=== PATIENT | male | born 1965 | race Caucasian/White ===

== ENCOUNTER 2018-08-01 22:02 | Inpatient (IN) | payer OTHER, MEDICAID ==
[~2018-08-01] VITALS: Ht 170.2 cm; Wt 104.8 kg
[~2018-08-01 22:02] MED LIST: AMIO200T PO; Acetaminophen PO; CARV3.122 PO; CLIN300C6 PO; COL250 PO; FURO-572 PO; LEVO750T2 PO; METO50TE2 PO; NYST100022 PO; PANT40EC PO; SACC250C1 PO; WARF5TAB1 PO; ZOLP5TAB1 PO
--- NOTE | 2018-08-01 22:13 | NUR ---
Patient ambulated to bed 3 with family. RN evaluating patient at bedside.
--- NOTE | 2018-08-01 22:14 | NUR ---
Report given to Florentin VOSS.
--- NOTE | 2018-08-01 22:20 | NUR ---
PT IS A 53 Y/O MALE WHO PRESENTS TO THE ED C/O CHEST PAIN AND DIFFICULTY BREATHING. PT REPORTS 8/10 ACHING LOWER CHEST PAIN. PT REPORTS SOB, LUNG SOUNDS CLEAR BL, 97% ON RA. PT DENIES COUGH, REPORTS VOMITING DENIES NAUSEA/DIARRHEA. PT AWAKE AND ALERT, RR EVEN/UNLABORED. PT REPOSITIONED FOR COMFORT, BED IN LOWEST POSITION. ER MD DR. BANDA NOTIFIED. WILL CONTINUE TO MONITOR. HX: CHF, HTN, DEFIBRILATOR
[2018-08-01] MEDS ORDERED: ASPIRIN 81 MG TAB.CHEW PO ONE (23:05)
[2018-08-01] MEDS ORDERED: NACL 0.9% 1,000 ML IV ONE (23:05)
[2018-08-01] MEDS ORDERED: PANTOPRAZOLE 40 MG INJ VIAL IVP ONE (23:05)
[2018-08-01] MEDS ORDERED: MORPHINE SULFATE 2 MG/ML SYR IVP ONE (23:15)
--- NOTE | 2018-08-01 23:16 | NUR ---
technical clerk at bedside.
[2018-08-01 23:57] LABS: BASOPHILS % (AUTO) 0.6 % (0.0-2.0); EOSINOPHILS % (AUTO) 0.2 % (0.0-4.0); HEMATOCRIT 45.5 % (36-52); LYMPHOCYTES # (AUTO) 0.7 K/uL (2.0-11.5); LYMPHOCYTES % (AUTO) 12.6 % (20.5-51.1); MEAN CORPUSCULAR HEMOGLOBIN 30 pg (27-31); MEAN CORPUSCULAR HGB CONC 33 g/dL (33-37); MONOCYTES # (AUTO) 0.3 K/uL (0.8-1.0); MONOCYTES % (AUTO) 6.4 % (1.7-9.3); NEUTROPHILS # (AUTO) 4.3 K/uL (1.8-7.7); NEUTROPHILS % (AUTO) 80.2 % (42.2-75.2); PLATELET COUNT (AUTO) 207 K/uL (140-450); RED BLOOD CELL COUNT(AUTO) 5.05 MIL/uL (4.20-6.10); RED CELL DISTRIBUTION WIDTH 15.3 % (11.6-13.7); WHITE BLOOD COUNT (AUTO) 5.3 K/uL (4.8-10.8)
--- NOTE | 2018-08-01 23:58 | NUR ---
Dr. Fenton evaluating patient at bedside.
[2018-08-02 00:12] LABS: ANION GAP 7.2 (8-16); CARBON DIOXIDE 28.7 mmol/L (21-32); CREATININE 1.4 mg/dL (0.7-1.3); POTASSIUM 4.9 mmol/L (3.5-5.1)
[2018-08-02 00:17] LABS: PROTHROMBIN TIME 20.4 secs (10.8-13.4)
[2018-08-02 00:18] LABS: ALBUMIN 3.6 g/dL (3.4-5.0); TOTAL BILIRUBIN 1.5 mg/dL (0.0-1.0)
--- NOTE | 2018-08-02 00:19 | NUR ---
PT STATES HE IS IN 07/[address] BANDA MADE AWARE
[2018-08-02] MEDS ORDERED: LIDOCAINE VISCOUS 2% 20 ML UDC PO ONE (00:25)
[2018-08-02] MEDS ORDERED: FUROSEMIDE 40 MG/4 ML VIAL IVP ONE (00:25)
[2018-08-02] MEDS ORDERED: ALUMINUM HYD/MAG/SIMETHICONE 30 ML UDC PO ONE (00:25)
[2018-08-02] MEDS ORDERED: MORPHINE SULFATE 2 MG/ML SYR IVP ONE (00:25)
[2018-08-02] MEDS ORDERED: NITROGLYCERIN 2% 1 GM PKT TP ONE (00:25)
[2018-08-02] MEDS ORDERED: DICYCLOMINE HCL LIQUID 10 MG/5 ML UDC PO ONE (00:25)
--- NOTE | 2018-08-02 00:30 | NUR ---
PATIENT RESTING AT THIS TIME. NO SIGNS OF DISTRESS.
[2018-08-02] MEDS ORDERED: ONDANSETRON 4 MG/2 ML VIAL IM/IVP PRN (01:10)
[2018-08-02] MEDS ORDERED: ACETAMINOPHEN 325 MG TAB PO PRN (01:10)
[2018-08-02] MEDS ORDERED: LORazepam 2 MG/ML VIAL IM/IVP PRN (01:10)
[2018-08-02] MEDS ORDERED: MORPHINE SULFATE 2 MG/ML SYR IVP PRN (01:10)
[2018-08-02] MEDS ORDERED: DOCUSATE SODIUM 100 MG GELCAP PO PRN (01:10)
--- NOTE | 2018-08-02 01:20 | NUR ---
Patient will be admitted to care of DR. OROZCO. Admited to TELE. Will go to room 112A. Belongings list completed. Report to STEVAN VOSS.
--- NOTE | 2018-08-02 01:25 | NUR ---
ADMITTED A 53 Y/O MALE WITH CHIEF COMPLAINT OF CHEST PAIN FROM [facility] VIA GURNEY. PATIENT AAOX4, AMBULATORY, COOPERATIVE. SKIN INTACT. MRSA NASAL SWAB DONE AND SENT TO THE LAB. PERSONAL BELONGINGS AT PATIENT BEDSIDE. DISCUSSED PLAN OF CARE AND VERBALIZED UNDERSTANDING. ROUTINE ADMISSION CARE DONE AND CARRY OUT. ORDERS. BED IN LOW LOCKED POSITION. CALL LIGHT WITHIN REACH. WILL CONTINUE TO MONITOR.
[2018-08-02] MEDS: NACL 0.9% 1,000 ML IV SCH ×2 (01:30→12:26)
[2018-08-02 01:38] LABS: CHOL/HDL RATIO 3.2 (1-4.5); PHOSPHORUS 2.3 mg/dL (2.5-4.9); THYROID STIMULATING HORMONE 1.96 uIU/mL (0.34-3.74)
[2018-08-02] MEDS ORDERED: SODIUM PHOS / POTASSIUM PHOS 1 PKT PDR PO SCH (02:30)
--- NOTE | 2018-08-02 02:45 | NUR ---
URINE COLLECTED AND SENT TO THE LAB.
--- NOTE | 2018-08-02 03:00 | NUR ---
SEEN PATIENT ASLEEP COMFORTABLE ON BED. BLANKET GIVEN PER PATIENT REQUEST. CALL LIGHT WITHIN REACH. ALL NEEDS ATTENDED. BED IN LOW LOCKED POSITION. DENIES CHEST PAIN. WILL CONTINUE TO MONITOR.
[2018-08-02 03:16] LABS: APPEARANCE,URINE CLEAR (CLEAR); BILIRUBIN,URINE NEGATIVE (NEGATIVE); BLOOD, URINE NEGATIVE (NEGATIVE); COLOR,URINE YELLOW (YELLOW); LEUKOCYTE ESTERASE ,URINE NEGATIVE (NEGATIVE); NITRITE, URINE NEGATIVE (NEGATIVE); PH,URINE 5.5 (5.0-9.0); UGLUCOSE NEGATIVE (NEGATIVE)
[2018-08-02 03:25] LABS: BARBITURATE, URINE NEG. ng/ml (NEG <=200); BENZODIAZEPINE, URINE NEG. ng/mL (NEG <=200); CANNABINOID, URINE NEG. ng/mL (NEG <=50); COCAINE, URINE NEG. ng/mL (NEG <=300); OPIATE, URINE NEG. ng/mL (NEG <=2000); PHENCYCLIDINE SCREEN,URINE NEG. ng/mL (NEG <=25)
[2018-08-02 04:00] VITALS: BP 103/64
--- NOTE | 2018-08-02 04:00 | NUR ---
V/S TAKEN AND RECORDED. CALL LIGHT WITHIN REACH. WILL CONTINUE TO MONITOR.
[2018-08-02] MEDS: HYDROcodone/APAP 5/325 MG 1 TAB TAB PO PRN (04:49)
[2018-08-02 06:34] LABS: BASOPHILS # (AUTO) 0.1 K/uL (0.00-0.22); BASOPHILS % (AUTO) 0.8 % (0.0-2.0); EOSINOPHILS % (AUTO) 0.4 % (0.0-4.0); HEMATOCRIT 44.2 % (36-52); HEMOGLOBIN 14.6 g/dL (12.0-18.0); LYMPHOCYTES % (AUTO) 13.8 % (20.5-51.1); MEAN CORPUSCULAR HEMOGLOBIN 30 pg (27-31); MEAN CORPUSCULAR HGB CONC 33 g/dL (33-37); MEAN CORPUSCULAR VOLUME 90.1 fL (80-94); MONOCYTES # (AUTO) 0.7 K/uL (0.8-1.0); MONOCYTES % (AUTO) 9.3 % (1.7-9.3); NEUTROPHILS # (AUTO) 5.5 K/uL (1.8-7.7); NEUTROPHILS % (AUTO) 75.7 % (42.2-75.2); PLATELET COUNT (AUTO) 211 K/uL (140-450); RED BLOOD CELL COUNT(AUTO) 4.91 MIL/uL (4.20-6.10); RED CELL DISTRIBUTION WIDTH 15.5 % (11.6-13.7); WHITE BLOOD COUNT (AUTO) 7.3 K/uL (4.8-10.8)
[2018-08-02 06:54] LABS: ANION GAP 12.2 (8-16); CARBON DIOXIDE 26.5 mmol/L (21-32); CREATININE 1.5 mg/dL (0.7-1.3); POTASSIUM 3.7 mmol/L (3.5-5.1)
[2018-08-02 07:10] LABS: MAGNESIUM 1.9 mg/dL (1.8-2.4)
--- NOTE | 2018-08-02 07:10 | NUR ---
GAVE REPORT TO AM SHIFT NURSE AT BEDSIDE FOR CONTINUITY OF CARE. PATIENT IN STABLE CONDITION.
[2018-08-02 07:11] LABS: PHOSPHORUS 3.2 mg/dL (2.5-4.9)
--- NOTE | 2018-08-02 07:11 | NUR ---
RECEIVED BEDSIDE REPORT FROM DYNAMOTOR REPAIRER NURSE. PATIENT IS AWAKE, ALERT AND ORIENTEDX4. NO COMPLAINTS OF CHEST PAIN AT THIS TIME. HE SAYS HE HAS ABDOMINAL PAIN BUT IT IS TOLERABLE. DYNAMOTOR REPAIRER GAVE A NORCO AND IT HELPED. SKIN IS INTACT. IV ON R AC 20G INFUSING NS AT 60. CLEAN, DRY AND INTACT. TELE MONITOR IN PLACE. L CHEST PACEMAKER IN PLACE. PATIENT AMBULATES W STEADY GAIT. BED IN LOW POSITION. CALL LIGHT WITHIN REACH. WILL CONTINUE TO MONITOR THE PATIENT
[2018-08-02 08:00] VITALS: BP 113/81
--- NOTE | 2018-08-02 08:00 | NUR ---
US CALLED. PATIENT AGREED TO HOLD BREAKFAST TO GET ABDOMINAL US DONE. WILL CONTINUE TO MONITOR.
--- NOTE | 2018-08-02 08:02 | NUR ---
PATIENT HAS BEEN SCREENED AND CATEGORIZED MODERATE RISK. PATIENT WILL BE SEEN WITHIN 3-5 DAYS OF ADMISSION. 08/05-08/[address], [facility]
[2018-08-02] MEDS ORDERED: DICYCLOMINE HCL LIQUID 10 MG/5 ML UDC PO SCH (08:30)
[2018-08-02] MEDS ORDERED: LIDOCAINE VISCOUS 2% 20 ML UDC PO SCH (08:30)
[2018-08-02] MEDS ORDERED: ALUMINUM HYD/MAG/SIMETHICONE 30 ML UDC PO SCH (08:30)
[2018-08-02] MEDS ORDERED: METOPROLOL 50 MG TAB PO SCH (09:00)
[2018-08-02] MEDS: CARVEDILOL 3.125 MG TAB PO SCH ×2 (09:09→21:07)
[2018-08-02] MEDS: AMIODARONE 200 MG TAB PO SCH (09:09)
[2018-08-02] MEDS: FUROSEMIDE 20 MG TAB PO SCH (09:10)
[2018-08-02] MEDS: LISINOPRIL 5 MG TAB PO SCH (09:10)
[2018-08-02] MEDS: ASPIRIN 81 MG TAB.CHEW PO SCH (09:10)
[2018-08-02] MEDS: METOPROLOL SUCCINATE 50 MG TABER PO SCH (09:11)
[2018-08-02] MEDS ORDERED: NACL 0.9% 500 ML IV ONE (09:15)
--- NOTE | 2018-08-02 09:15 | NUR ---
ADMINISTERED GI COCKTAIL AND ORDERED MEDS. PATIENT TOLERATED WELL. BED IN LOW POSITION. CALL LIGHT WITHIN REACH. WILL CONTINUE TO MONITOR
--- NOTE | 2018-08-02 10:30 | NUR ---
PATIENT RECEIVING BOLUS AT THIS TIME. NO COMPLAINTS AT THIS TIME. BED IN LOW POSITION, PATIENT LAYING DOWN. CALL LIGHT WITHIN REACH
--- NOTE | 2018-08-02 11:28 | NUR ---
PATIENT HAS VISITORS AT BEDSIDE. NO SIGNS OF DISTRESS ON ROOM AIR. WILL CONTINUE TO MONITOR THE PATIENT
[2018-08-02 12:00] VITALS: BP 114/70
--- NOTE | 2018-08-02 13:06 | NUR ---
PATIENT LAYING IN BED. NO SIGNS OF DISTRESS. BED IN LOW POSITION. WILL CONTINUE TO MONITOR
[2018-08-02] MEDS ORDERED: BACLOFEN 10 MG TAB PO SCH (14:30)
--- NOTE | 2018-08-02 15:17 | NUR ---
ADMINISTERED MEDS ORDERED. PATIENT TOLERATED WELL. OFFERED TO PLACE SCDS ON THE PATIENT. HE REFUSED. HE SAID HE WILL WALK AROUND INSTEAD OF USING THE SCDS. EDUCATED PATIENT ON THE USE. HE VERBALIZED UNDERSTANDING
[2018-08-02 16:00] VITALS: BP 118/82
[2018-08-02] MEDS ORDERED: WARFARIN 5 MG TAB PO SCH ×2 (17:00→19:00)
[2018-08-02] MEDS: BACLOFEN 10 MG TAB PO SCH (17:17)
--- NOTE | 2018-08-02 17:18 | NUR ---
ADMINISTERED MEDS ORDERED. PATIENT TOLERATED WELL. STATES THE MUSCLE SPASM MED REALLY HELPS. NO COMPLAINTS AT THIS TIME. WILL CONTINUE TO MONITOR THE PATIENT
--- NOTE | 2018-08-02 19:09 | NUR ---
GAVE BEDSIDE REPORT TO STERILE PROCESSING TECHNICIAN NURSE. PATIENT ENDORSED IN STABLE CONDITION.
--- NOTE | 2018-08-02 19:21 | NUR ---
RECEIVED FROM AM RN IN BED AWAKE AND LAYING DOWN. ABLE TO VERBALIZE NEEDS WELL. NO SOB. DENIES ANY PAIN AT THIS TIME. TELEMETRY MONITORING. ENCOURAGED TO CALL FOR ANY HELP HE MAY NEED . CALL LIGHT WITH IN REACH. PT. INDEPENDENT AND AMBULATING WELL PER PT.
[2018-08-02 19:40] VITALS: BP 120/84
--- NOTE | 2018-08-02 20:45 | NUR ---
RECEIVED REPORT FROM DAY SHIFT RN, FOR CONTINUITY OF CARE. PT IS A/OX4, ON ROOM AIR. PT IS ABLE TO MAKE NEEDS KNOWN, ABLE TO FOLLOW COMMANDS. PT BREATHS EQUAL AND UNLABORED. PT SKIN IS INTACT. PT AMBULATES WITH STEADY GAIT. PT HAS A 20G IV TO RIGHT AC, ASYMPTOMATIC AND INTACT. DISCUSSED PLAN OF CARE WITH PT, PT VERBALIZED UNDERSTANDING. VITAL SIGNS WITHIN NORMAL LIMITS. PT STABLE, NO SIGNS OF DISTRESS NOTED AT THIS TIME. BED IN LOWEST POSITION, BED ALARM ON. CALL LIGHT WITHIN REACH, WILL CONTINUE TO MONITOR. Addendum: 08/02/18 at 2148 by Danay Gurrola RN RECEIVED REPORT FROM BIPIN GIRALDO, NOT DAY SHIFT RN.
[2018-08-02] MEDS: SIMVASTATIN 40 MG TAB PO SCH (21:07)
[2018-08-02] MEDS: ZOLPIDEM 5 MG TAB PO PRN (21:07)
--- NOTE | 2018-08-02 21:08 | NUR ---
ADMINISTERED SCHEDULED MEDICATIONS, PT TOLERATED WELL.
[2018-08-03] VITALS: BP 105/75
--- NOTE | 2018-08-03 | NUR ---
VITAL SIGNS WITHIN NORMAL LIMITS. PT STABLE, NO SIGNS OF DISTRESS NOTED AT THIS TIME. BED IN LOWEST POSITION, BED ALARM ON. CALL LIGHT WITHIN REACH, WILL CONTINUE TO MONITOR.
--- NOTE | 2018-08-03 02:34 | NUR ---
CHECKED ON PT BECAUSE THE PT IN BED NEXT TO HIM SAID PT WOULD STOP BREATHING. SPOKE TO PT AND PT STATES HE HAS SLEEP APNEA BUT HE DOES NOT USE A CPAP OR ANY OTHER DEVICE.
[2018-08-03 04:00] VITALS: BP 117/85
[2018-08-03] MEDS: HYDROcodone/APAP 5/325 MG 1 TAB TAB PO PRN (05:32)
--- NOTE | 2018-08-03 05:32 | NUR ---
ADMINISTERED NORCO FOR FLANK PAIN ON RIGHT SIDE, 04/06. PT TOLERATED WELL.
[2018-08-03] MEDS: NACL 0.9% 1,000 ML IV SCH (05:34)
[2018-08-03] MEDS: BACLOFEN 10 MG TAB PO SCH ×3 (06:32→17:26)
--- NOTE | 2018-08-03 06:35 | NUR ---
ADMINISTERED BACLOFEN EARLY PER DR LOMAS'S ORDER. PT STILL COMPLAINING OF SIDE PAIN SO SAID OK TO GIVE BACLOFEN NOW. PT TOLERATED WELL.
[2018-08-03 06:49] LABS: BASOPHILS % (AUTO) 0.4 % (0.0-2.0); EOSINOPHILS # (AUTO) 0.1 K/uL (0-0.4); EOSINOPHILS % (AUTO) 1.6 % (0.0-4.0); HEMATOCRIT 43.7 % (36-52); HEMOGLOBIN 14.6 g/dL (12.0-18.0); LYMPHOCYTES # (AUTO) 1.8 K/uL (2.0-11.5); LYMPHOCYTES % (AUTO) 32.1 % (20.5-51.1); MEAN CORPUSCULAR HEMOGLOBIN 30 pg (27-31); MEAN CORPUSCULAR HGB CONC 33 g/dL (33-37); MEAN CORPUSCULAR VOLUME 90.1 fL (80-94); MONOCYTES # (AUTO) 0.6 K/uL (0.8-1.0); MONOCYTES % (AUTO) 11.1 % (1.7-9.3); NEUTROPHILS % (AUTO) 54.8 % (42.2-75.2); PLATELET COUNT (AUTO) 185 K/uL (140-450); RED BLOOD CELL COUNT(AUTO) 4.84 MIL/uL (4.20-6.10); RED CELL DISTRIBUTION WIDTH 14.6 % (11.6-13.7); WHITE BLOOD COUNT (AUTO) 5.5 K/uL (4.8-10.8)
[2018-08-03 06:52] LABS: ANION GAP 4.2 (8-16); CARBON DIOXIDE 27.6 mmol/L (21-32); CREATININE 1.4 mg/dL (0.7-1.3); POTASSIUM 3.8 mmol/L (3.5-5.1)
[2018-08-03 06:58] LABS: PHOSPHORUS 2.4 mg/dL (2.5-4.9)
--- NOTE | 2018-08-03 07:16 | NUR ---
RECEIVED BEDSIDE REPORT FROM REMOTE CONTROL ASSEMBLER NURSE. PATIENT IS AWAKE, ALERT AND ORIENTEDX4. NO SIGNS OF DISTRESS ON ROOM AIR. NO COMPLAINTS OF CHEST PAIN AT THIS TIME. TELE MONITOR IS IN PLACE. HE IS AMBULATORY. SKIN IS INTACT. R AC 20G INFUSING NS AT 60. CLEAN, DRY AND INTACT. BED IN LOW POSITION. CALL LIGHT WITHIN REACH. WILL CONTINUE TO MONITOR THE PATIENT
--- NOTE | 2018-08-03 07:16 | NUR ---
ENDORSED PT TO DAY SHIFT RN FOR CONTINUITY OF CARE, PT IN STABLE CONDITION.
[2018-08-03 08:00] VITALS: BP 143/80
--- NOTE | 2018-08-03 08:00 | NUR ---
PATIENT EATING BREAKFAST. NO SIGNS OF DISTRESS. BED IN LOW POSITION. WILL CONTINUE TO MONITOR
[2018-08-03 08:09] LABS: T4 (THYROXINE) 11.2 ug/dL (4.5-12.0)
--- NOTE | 2018-08-03 09:00 | NUR ---
DR LOMAS SAID TO PLACE PATIENT NPO IN CASE PATIENT GETS SURGERY. SURGEON TO SEE PATIENT TO SEE IF HE IS QUALIFIED FOR LAP YAMILETH. NPO SIGNS UP
--- NOTE | 2018-08-03 10:00 | NUR ---
PATIENT NOT NPO ANYMORE PER DR LOMAS. SIGNS REMOVED
[2018-08-03] MEDS: LISINOPRIL 5 MG TAB PO SCH (10:06)
[2018-08-03] MEDS: ASPIRIN 81 MG TAB.CHEW PO SCH (10:06)
[2018-08-03] MEDS: CARVEDILOL 3.125 MG TAB PO SCH ×2 (10:06→20:27)
[2018-08-03] MEDS: METOPROLOL SUCCINATE 50 MG TABER PO SCH (10:07)
[2018-08-03] MEDS: AMIODARONE 200 MG TAB PO SCH (10:07)
[2018-08-03] MEDS: FUROSEMIDE 20 MG TAB PO SCH (10:07)
[2018-08-03 10:09] LABS: PROTHROMBIN TIME 18.1 secs (10.8-13.4)
--- NOTE | 2018-08-03 10:09 | NUR ---
ADMINISTERED MEDS. PATIENT TOLERATED WELL. WILL CONTINUE TO MONITOR THE PATIENT
--- NOTE | 2018-08-03 11:18 | NUR ---
PATIENT SITTING IN BED WATCHING TV. NO SIGNS OF DISTRESS, BED IN LOW POSITION. CALL LIGHT WITHIN REACH
--- NOTE | 2018-08-03 11:35 | NUR ---
PATIENT IN THE SHOWERED.
[2018-08-03 12:00] VITALS: BP 126/76
--- NOTE | 2018-08-03 12:00 | NUR ---
PATIENT BACK FROM THE SHOWER IN STABLE CONDITION.
[2018-08-03] MEDS: SODIUM PHOS / POTASSIUM PHOS 1 PKT PDR PO SCH ×2 (13:20→20:28)
--- NOTE | 2018-08-03 13:28 | NUR ---
ADMINISTERED MEDS. PATIENT TOLERATED WELL. DAUGHTER AT BEDSIDE. WILL CONTINUE TO MONITOR THE PATIENT
--- NOTE | 2018-08-03 15:17 | NUR ---
IV IS LEAKING. NEW IV ON L HAND 22G INFUSING NS AT 60. CLEAN, DRY AND INTACT. OTHER IV REMOVED, TIP IS INTACT.
[2018-08-03 16:00] VITALS: BP 108/74
--- NOTE | 2018-08-03 16:15 | NUR ---
PATIENT LAYING IN BED. NO SIGNS OF DISTRESS. BED IN LOW POSITION. CALL LIGHT WITHIN REACH. WILL CONTINUE TO MONITOR THE PATIENT
[2018-08-03] MEDS ORDERED: WARFARIN 5 MG TAB PO SCH (17:00)
--- NOTE | 2018-08-03 17:30 | NUR ---
ADMINISTERED MEDS. PATIENT TOLERATED WELL. PATIENT ABOUT TO EAT DINNER. WILL CONTINUE TO MONITOR.
--- NOTE | 2018-08-03 19:00 | NUR ---
GAVE BEDSIDE REPORT TO RESERVOIR ENGINEERING CONSULTANT NURSE. PATIENT ENDORSED IN STABLE CONDITION
--- NOTE | 2018-08-03 19:05 | NUR ---
RECEIVED REPORT FROM DAY SHIFT RN, FOR CONTINUITY OF CARE. PT IS A/OX4, ON ROOM AIR. PT IS ABLE TO MAKE NEEDS KNOWN, ABLE TO FOLLOW COMMANDS. PT BREATHS EQUAL AND UNLABORED. PT SKIN IS INTACT. PT AMBULATES WITH STEADY GAIT. PT HAS A 20G IV TO LEFT HAND, ASYMPTOMATIC AND INTACT. DISCUSSED PLAN OF CARE WITH PT, PT VERBALIZED UNDERSTANDING. VITAL SIGNS WITHIN NORMAL LIMITS. PT STABLE, NO SIGNS OF DISTRESS NOTED AT THIS TIME. BED IN LOWEST POSITION, BED ALARM ON. CALL LIGHT WITHIN REACH, WILL CONTINUE TO MONITOR.
[2018-08-03 19:30] VITALS: BP 129/87
--- NOTE | 2018-08-03 20:05 | NUR ---
CUSTOMER SERVICE AND SALES CONSULTANT CALLED AND SAID SHE WOULD COME GET PT TO CT SOON.
[2018-08-03] MEDS: SIMVASTATIN 40 MG TAB PO SCH (20:27)
--- NOTE | 2018-08-03 20:30 | NUR ---
ADMINISTERED SCHEDULED MEDICATIONS, PT TOLERATED WELL.
--- NOTE | 2018-08-03 20:55 | NUR ---
PT WENT TO CT IN WHEELCHAIR AND IN STABLE CONDITION.
--- NOTE | 2018-08-03 21:10 | NUR ---
PT ARRIVED FROM CT, STABLE.
--- NOTE | 2018-08-03 23:05 | NUR ---
ASKED DR ZARAGOZA IF PT WOULD BE DISCHARGED TOMORROW BECAUSE PT WANTS TO KNOW. LET PT KNOW THAT DR WILL GIVE HIM AN UPDATE IN THE MORNING BECAUSE IT IS TOO SOON TO TELL OF NOW.
[2018-08-04] VITALS: BP 113/70
--- NOTE | 2018-08-04 02:43 | NUR ---
PT STABLE, NO SIGNS OF DISTRESS NOTED AT THIS TIME. BED IN LOWEST POSITION, BED ALARM ON. CALL LIGHT WITHIN REACH, WILL CONTINUE TO MONITOR.
[2018-08-04] MEDS: NACL 0.9% 1,000 ML IV SCH (03:51)
[2018-08-04 04:00] VITALS: BP 125/76
--- NOTE | 2018-08-04 06:18 | NUR ---
VITAL SIGNS WITHIN NORMAL LIMITS. PT STABLE, NO SIGNS OF DISTRESS NOTED AT THIS TIME. BED IN LOWEST POSITION, BED ALARM ON. CALL LIGHT WITHIN REACH, WILL CONTINUE TO MONITOR. Addendum: 08/04/18 at 0618 by Danay Gurrola RN DISREGARD.
--- NOTE | 2018-08-04 06:47 | NUR ---
SPOKE TO ANABELLE ABOUT STAT HIDA SCAN, SHE SAYS SHE WILL CALL SOMEONE TO COME DO IT AND SHE WILL UPDATE ME KARIN.
--- NOTE | 2018-08-04 07:30 | NUR ---
ENDORSED PT TO DAY SHIFT RN FOR CONTINUITY OF CARE. PT IN STABLE CONDITION.
--- NOTE | 2018-08-04 07:30 | NUR ---
Received report from night RN. Pt asleep easily arousable, a/o able to communicate needs. Pt denies pain, N/V at this time. Pt aware of planned test and is NPO and agreeable. No s/s of acute distress noted at this time, call light and safety measures in place, will continue to monitor.
[2018-08-04 07:40] LABS: BASOPHILS % (AUTO) 0.3 % (0.0-2.0); EOSINOPHILS # (AUTO) 0.1 K/uL (0-0.4); EOSINOPHILS % (AUTO) 1.6 % (0.0-4.0); HEMOGLOBIN 14.9 g/dL (12.0-18.0); LYMPHOCYTES # (AUTO) 1.6 K/uL (2.0-11.5); LYMPHOCYTES % (AUTO) 27.2 % (20.5-51.1); MEAN CORPUSCULAR HEMOGLOBIN 30 pg (27-31); MEAN CORPUSCULAR HGB CONC 33 g/dL (33-37); MEAN CORPUSCULAR VOLUME 89.8 fL (80-94); MONOCYTES # (AUTO) 0.6 K/uL (0.8-1.0); MONOCYTES % (AUTO) 11.1 % (1.7-9.3); NEUTROPHILS # (AUTO) 3.5 K/uL (1.8-7.7); NEUTROPHILS % (AUTO) 59.8 % (42.2-75.2); PLATELET COUNT (AUTO) 193 K/uL (140-450); RED BLOOD CELL COUNT(AUTO) 5.01 MIL/uL (4.20-6.10); RED CELL DISTRIBUTION WIDTH 14.8 % (11.6-13.7); WHITE BLOOD COUNT (AUTO) 5.8 K/uL (4.8-10.8)
--- NOTE | 2018-08-04 07:45 | NUR ---
Spoke with Kia at [facility] radiology, per kia MANDEL scan to be completed at 1pm unless outsourced.
[2018-08-04 07:46] LABS: ANION GAP 10.9 (8-16); CARBON DIOXIDE 26.1 mmol/L (21-32); CREATININE 1.3 mg/dL (0.7-1.3)
--- NOTE | 2018-08-04 07:50 | NUR ---
Dr Gunter rounding st bedside. Pt a/o cooperative, notified Dr Whitfield that per radiology HIDA unable to be completed until 1pm today unless he would like to outsource for earlier exam, per Dr beltran 1pm time is ok, charge nurse aware. Pt aware and agreeable. No s/s of acute distress noted at this time, call light and safety measures in place, will continue to monitor.
[2018-08-04 07:56] LABS: PROTHROMBIN TIME 24.4 secs (10.8-13.4)
[2018-08-04 08:00] VITALS: BP 121/84
--- NOTE | 2018-08-04 08:35 | NUR ---
Spoke with Lois in radiology, per Kia Abreu to perform HIDA exam at 1 pm today. Exam will be performed by PMI,; awaiting call back to verify time.
[2018-08-04] MEDS: ASPIRIN 81 MG TAB.CHEW PO SCH ×2 (08:50→11:47)
[2018-08-04] MEDS: CARVEDILOL 3.125 MG TAB PO SCH ×3 (08:51→20:55)
[2018-08-04] MEDS: LISINOPRIL 5 MG TAB PO SCH ×2 (08:51→11:49)
[2018-08-04] MEDS: FUROSEMIDE 20 MG TAB PO SCH ×2 (08:51→11:48)
[2018-08-04] MEDS: METOPROLOL SUCCINATE 50 MG TABER PO SCH ×2 (08:51→11:49)
[2018-08-04] MEDS: BACLOFEN 10 MG TAB PO SCH ×3 (08:51→16:33)
[2018-08-04] MEDS: AMIODARONE 200 MG TAB PO SCH ×2 (08:52→11:48)
--- NOTE | 2018-08-04 09:50 | NUR ---
Pt a/o able to communicate needs. Pt denies pain, N/V at this time, maintained NPO. No s/s of acute distress noted at this time, call light and safety measures in place, will continue to monitor.
[2018-08-04] MEDS: DEXT 5% /NACL 0.9% 1,000 ML IV SCH (11:41)
[2018-08-04 12:00] VITALS: BP 130/92
--- NOTE | 2018-08-04 12:28 | NUR ---
EKG completed at bedside. HIDA scan in process at bedside, Pt tolerating well. Pt denies pain, no s/s of acute distress noted at this time, call light and safety measures in place, will continue to monitor.
--- NOTE | 2018-08-04 15:30 | NUR ---
Pt asleep easily arousable a/o able to communicate needs. Denies n/v, denies pain, no s/s of acute distress noted at this time. Waiting on results of HIDA scan. Call light and safety precautions in place, will continue to monitor.
[2018-08-04 16:00] VITALS: BP 118/80
[2018-08-04] MEDS ORDERED: WARFARIN 1 MG TAB PO SCH (17:00)
--- NOTE | 2018-08-04 17:15 | NUR ---
Reymundo Smith in nuclear med regarding HIDA scan results; will f/u with PMI and notify nursing when results available. Dr Leiva notified and request PM physician be notified when results available for follow up orders. The plan is for the patient to have dinner and then resume NPO pending results.
--- NOTE | 2018-08-04 19:05 | NUR ---
Pt awake a/o able to communicate needs. Denies n/v, denies pain, no s/s of acute distress noted at this time, call light and safety measures in place. Report endorsed to abad nurse Danay including follow up for results of HIDA scan.
--- NOTE | 2018-08-04 19:10 | NUR ---
RECEIVED REPORT FROM DAY SHIFT RN, FOR CONTINUITY OF CARE. PT IS A/OX4, ON ROOM AIR. PT IS ABLE TO MAKE NEEDS KNOWN, ABLE TO FOLLOW COMMANDS. PT BREATHS EQUAL AND UNLABORED. PT SKIN IS INTACT. PT AMBULATES WITH STEADY GAIT. PT HAS A 20G IV TO LEFT HAND, ASYMPTOMATIC AND INTACT. DISCUSSED PLAN OF CARE WITH PT, PT VERBALIZED UNDERSTANDING. HIDA SCAN WAS SENT AND NOW AWAITING RESULTS, INSTRUCTIONS TO INFORM BICYCLE TAXI DRIVER RESIDENT UPON RECEIVED RESULTS. VITAL SIGNS WITHIN NORMAL LIMITS. PT STABLE, NO SIGNS OF DISTRESS NOTED AT THIS TIME. BED IN LOWEST POSITION, BED ALARM ON. CALL LIGHT WITHIN REACH, WILL CONTINUE TO MONITOR.
[2018-08-04 20:00] VITALS: BP_SYST 110; BP_SYST 128; BP_DIAS 62; BP_DIAS 76
[2018-08-04] MEDS: SIMVASTATIN 40 MG TAB PO SCH (20:54)
[2018-08-04] MEDS: ZOLPIDEM 5 MG TAB PO PRN (20:54)
--- NOTE | 2018-08-04 20:56 | NUR ---
ADMINISTERED SCHEDULED MEDICATIONS AND AMBIEN FOR TROUBLE SLEEPING, PT TOLERATED WELL . PT NOW GOING TO SHOWER.
--- NOTE | 2018-08-04 22:15 | NUR ---
CALLED RADIOLOGY TO FIND OUT ABOUT HIDA SCAN REPORT BECAUSE DAY SHIFT HAD TOLD ME THEY HAD PUT IT THROUGH STAT IN THE DAY AND NO RESULTS ARE SHOWN YET.
--- NOTE | 2018-08-04 22:35 | NUR ---
GOT A CALL BACK ABOUT HIDA SCAN RESULTS. APPARENTLY NO IMAGES WERE SENT EARLIER AND THEY WILL NOW SEND AGAIN WITH IMAGES STAT.
--- NOTE | 2018-08-04 22:36 | NUR ---
RECEIVED REPORT FROM DAY SHIFT RN, FOR CONTINUITY OF CARE. PT IS A/OX4, ON ROOM AIR. PT IS ABLE TO MAKE NEEDS KNOWN, ABLE TO FOLLOW COMMANDS. PT BREATHS EQUAL AND UNLABORED. PT SKIN IS INTACT. PT AMBULATES WITH STEADY GAIT. PT HAS A 20G IV TO LEFT HAND, ASYMPTOMATIC AND INTACT. DISCUSSED PLAN OF CARE WITH PT, PT VERBALIZED UNDERSTANDING. VITAL SIGNS WITHIN NORMAL LIMITS. PT STABLE, NO SIGNS OF DISTRESS NOTED AT THIS TIME. BED IN LOWEST POSITION, BED ALARM ON. CALL LIGHT WITHIN REACH, WILL CONTINUE TO MONITOR. Addendum: 08/04/18 at 2236 by Danay Gurrola RN DISREGARD, MADE MISTAKE.
--- NOTE | 2018-08-04 23:04 | NUR ---
RADIOLOGY CALLED AND SAID FAX OF HIDA SCAN RESULTS ARE HERE. WENT AND GOT RESULTS TO GIVE TO DR ABDI.
[2018-08-05] VITALS: BP 100/57
--- NOTE | 2018-08-05 02:43 | NUR ---
CHECKED ON PT, PT IS STABLE, NO SIGNS OF DISTRESS NOTED AT THIS TIME. BED IN LOWEST POSITION, BED ALARM ON. CALL LIGHT WITHIN REACH, WILL CONTINUE TO MONITOR.
[2018-08-05 04:00] VITALS: BP 114/77
[2018-08-05 05:54] LABS: BASOPHILS % (AUTO) 0.3 % (0.0-2.0); EOSINOPHILS # (AUTO) 0.1 K/uL (0-0.4); HEMATOCRIT 46.6 % (36-52); HEMOGLOBIN 15.6 g/dL (12.0-18.0); LYMPHOCYTES # (AUTO) 1.5 K/uL (2.0-11.5); LYMPHOCYTES % (AUTO) 29.4 % (20.5-51.1); MEAN CORPUSCULAR HEMOGLOBIN 30 pg (27-31); MEAN CORPUSCULAR HGB CONC 34 g/dL (33-37); MEAN CORPUSCULAR VOLUME 89.4 fL (80-94); MONOCYTES # (AUTO) 0.7 K/uL (0.8-1.0); MONOCYTES % (AUTO) 13.1 % (1.7-9.3); NEUTROPHILS # (AUTO) 2.9 K/uL (1.8-7.7); NEUTROPHILS % (AUTO) 55.2 % (42.2-75.2); PLATELET COUNT (AUTO) 201 K/uL (140-450); RED BLOOD CELL COUNT(AUTO) 5.22 MIL/uL (4.20-6.10); RED CELL DISTRIBUTION WIDTH 14.9 % (11.6-13.7); WHITE BLOOD COUNT (AUTO) 5.2 K/uL (4.8-10.8)
[2018-08-05] MEDS: DEXT 5% /NACL 0.9% 1,000 ML IV SCH (06:00)
[2018-08-05 06:16] LABS: CREATININE 1.4 mg/dL (0.7-1.3)
--- NOTE | 2018-08-05 06:20 | NUR ---
PT STABLE, NO SIGNS OF DISTRESS NOTED AT THIS TIME. BED IN LOWEST POSITION, BED ALARM ON. CALL LIGHT WITHIN REACH, WILL CONTINUE TO MONITOR.
[2018-08-05 06:22] LABS: ANION GAP 4.1 (8-16); CARBON DIOXIDE 27.9 mmol/L (21-32)
[2018-08-05 07:06] LABS: PROTHROMBIN TIME 25.7 secs (10.8-13.4)
--- NOTE | 2018-08-05 07:41 | NUR ---
ENDORSED PT TO DAY SHIFT RN FOR CONTINUITY OF CARE. PT IN STABLE CONDITION.
--- NOTE | 2018-08-05 07:46 | NUR ---
RECEIVED PT FROM BOAT MECHANIC NURSEBEN, PT IS AWAKE AND LYING ON THE BED WITH AN IV LINE ON THE LEFT HAND G. 22 WITH D5NS AT 60ML/HR RUNNING AND INTACT. PT HAS A RETURN TO FACTORY CLERK IN PLACE, SIDE RAILS ARE UP AND CALL LIGHT WITHIN REACH. PT DENIES PAIN AT THIS TIME AND PLAN OF CARE WAS DISCUSSED BY DR. OROZCO WITH THE RESIDENTS ON THE BEDSIDE AND PT VERBALIZED UNDERSTANDING. NO SIGN OF DISTRESS NOTED AND WILL CONTINUE TO MONITOR PT.
--- NOTE | 2018-08-05 07:50 | NUR ---
DR. OROZCO AND THE RESIDENT DOCTORS CAME TO THE PT'S ROOM AND SPOKE TO PT AND INFORMED THE PT THAT HE WILL BE TRANSFERRED TO A HIGHER LEVEL OF CARE AND PT VERBALIZED UNDERSTANDING. WILL FOLLOW THROUGH AND MONITOR PT.
[2018-08-05 08:00] VITALS: BP 128/86
[2018-08-05] MEDS: FUROSEMIDE 20 MG TAB PO SCH (08:50)
[2018-08-05] MEDS: BACLOFEN 10 MG TAB PO SCH ×2 (08:50→12:56)
[2018-08-05] MEDS: ASPIRIN 81 MG TAB.CHEW PO SCH (08:54)
[2018-08-05] MEDS: AMIODARONE 200 MG TAB PO SCH (08:56)
[2018-08-05] MEDS: CARVEDILOL 3.125 MG TAB PO SCH (08:56)
[2018-08-05] MEDS: LISINOPRIL 5 MG TAB PO SCH (08:56)
[2018-08-05] MEDS: METOPROLOL SUCCINATE 50 MG TABER PO SCH (08:57)
--- NOTE | 2018-08-05 09:00 | NUR ---
PT IS AWAKE AND LYING ON THE BED, PT DENIES PAIN AT THIS TIME, VITAL SIGNS TAKEN AND IS STABLE AND WITHIN NORMAL LIMITS. PT TOLERATED THE MEDICATIONS AND WILL CONTINUE TO MONITOR PT.
--- NOTE | 2018-08-05 10:21 | NUR ---
CM NOTE RECEIVED ORDER TO TRANSFER FOR HIGHER LEVEL OF CARE. SPOKE WITH [facility] KIRIT PH# [phone] AND SHE REQUESTED FOR THE FACESHEET, ORDER FOR TRANSFER TO HIGHER LEVEL OF CARE, AND H&P TO BE FAXED TO THEM AT [phone]. FAXED FACESHEET, ORDER TRANSFER TO HIGHER LEVEL OF CARE, AND H[place] TO [facility] [phone] [facility] PH# [phone].
[2018-08-05 12:00] VITALS: BP 122/85
--- NOTE | 2018-08-05 12:24 | NUR ---
CM NOTE PER [facility] BUSINESS DEVELOPMENT SALES EXECUTIVE KIRIT PH# [phone], SHE WILL FOLLOW UP WITH THEIR DOCTOR IF PATIENT CAN BE ACCEPTED OR NOT. Addendum: 08/05/18 at 1406 by Leigha Faulkner CM I ALSO GAVE KIRIT THE NUMBER TO THE NURSING STATION WHERE PATIENT IS IN CASE THEIR DOCTOR ACCEPTS THE PATIENT.
[2018-08-05] MEDS ORDERED: PIPER/TAZO 3.375GM/D5W PREMIX 50 ML IV SCH (13:40)
--- NOTE | 2018-08-05 13:45 | NUR ---
CALLED LAB AND SPOKE TO MANINDER AND INFORMED HIM OF THE BLOOD CULTURE ORDER THE PT.
--- NOTE | 2018-08-05 13:52 | NUR ---
CM NOTE PER DR. Adri LOMAS, ACCEPTING IN [facility] IS DR. Isaura KAYE. SPOKE WITH VERONICA OF [facility] ADMITTING PH# [phone] AND SHE REQUESTED FOR FACESHEET, ORDER TO TRANSFER FOR HIGHER LEVEL OF CARE, H&P, CONSULTATION REPORT TO [phone]. FACESHEET, ORDER TO TRANSFER FOR HIGHER LEVEL OF CARE, H&P, CARDIOLOGY CONSULT FAXED TO [facility] [phone], ADMITTING DEPT PH# [phone]. Addendum: 08/05/18 at 1403 by Leigha Faulkner I ALSO GAVE VERONICA OF [facility] [place] [facility] THE NUMBER TO THE NURSING STATION WHERE PATIENT IS IN CASE A BED BECOMES AVAILABLE AT A LATER TIME. CHARGE NURSE GIOVANNA ROSSI.
--- NOTE | 2018-08-05 14:17 | NUR ---
LAB IS DRAWING BLOOD NOW FROM [facility] PT FOR A BLOOD CULTURE ORDER FROM DR. LOMAS
[2018-08-05] MEDS ORDERED: LACT10CA PO (14:26)
[2018-08-05] MEDS ORDERED: SIMV40TA5 PO (14:26)
[2018-08-05] MEDS ORDERED: PANT40EC28 PO (14:26)
[2018-08-05] MEDS ORDERED: ZOS2.25PM IV (14:26)
--- NOTE | 2018-08-05 14:27 | NUR ---
CM NOTE RECEIVED CALL FROM [facility] RADIAL DRILL OPERATOR KIRIT PH# [phone] WHO STATED THAT THEIR HOSPITALIST DR. SANTIZO DENIED ACCEPTANCE OF PATIENT IN THEIR HOSPITAL BECAUSE THE HOSPITALIST THINKS THAT [facility] IS CAPABLE OF DOING THE SURGERY ON THE PATIENT. KIRIT ALSO STATED THAT THEIR HOSPITALIST HAS SPOKEN WITH AND LET DR. LOMAS KNOW. Addendum: 08/05/18 at 1433 by Leigha Faulkner CM CHARGE NURSE GIOVANNA ROSSI.
[2018-08-05] MEDS ORDERED: PANTOPRAZOLE 40 MG TABEC PO SCH (14:30)
[2018-08-05] MEDS ORDERED: LACTOBACILLUS RHAMNOSUS GG 1 EACH CAP PO SCH (14:30)
--- NOTE | 2018-08-05 15:13 | NUR ---
CM NOTE PER VERONICA OF [facility], NO BED AT THIS TIME. DR. LOMAS AWARE. FAXED INQUIRY TO [facility] [phone], PH# [phone]. I GAVE ROXY OF [facility] THE NUMBER TO THE NURSING STATION WHERE PATIENT IS. CHARGE NURSE GIOVANNA AWARE.
[2018-08-05 16:00] VITALS: BP 117/87
--- NOTE | 2018-08-05 17:10 | NUR ---
ADRIAN FROM [facility] ADMITTING CALLED AND INFORMED THAT THE PT HAS A BED AND WILL BE PUT IN ROOM 442 BUT NOT UNTIL 1900 TODAY. ADMITTING MD WILL BE JOSE MAYBERRY. INFORMED CHARGE NURSE, GIOVANNA TO ARRANGE TRANSPORT. WILL FOLLOW THROUGH.
[2018-08-05 18:23] LABS: PROTHROMBIN TIME 24.7 secs (10.8-13.4)
--- NOTE | 2018-08-05 19:45 | NUR ---
RECEIVED REPORT FROM DAY SHIFT NURSE, CORY, AT PT BEDSIDE. PT IN STABLE CONDITION. PT IS A/O X4. IV SITE TO L WRIST WITH IVF RUNNING PER MD ORDERS. IV IS PATENT AND INTACT. SKIN IS INTACT. BED IS LOCKED, LOW POSITION WITH SIDE RAILS UP X2. CALL LIGHT IS WITHIN REACH. BOARD UPDATED. WILL CONTINUE TO MONITOR PT.
--- NOTE | 2018-08-05 19:50 | NUR ---
CALLED [facility] AND SPOKE AND GAVE REPORT TO BIPIN MILES ABOUT THE PT. INFORMED BIPIN MILES THAT PT WILL BE PLACE IN BED 442 AND ADMITTING MD WILL BE JOSE MAYBERRY. 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
[2018-08-05 20:00] VITALS: BP 121/85
--- NOTE | 2018-08-05 20:14 | NUR ---
ENDORSED PT TO REVOLVING INVENTORY CLERK MANASA, FOR TRANSFER TO [facility]. DISCHARGE PAPERWORK DONE AND PT SIGNED BY THE PT. ENDORSED TO RN MANASA THAT PT WILL BE MEDICAL TECHNICIAN BY [facility]. DISCHARGE TEACHING AND INSTRUCTIONS GIVEN TO PT WITH REVOLVING INVENTORY CLERK NURSE, MANASA ON THE BEDSIDE. PT IS STABLE AT THIS TIME.
--- NOTE | 2018-08-05 20:30 | NUR ---
[facility] TOOK PT OFF UNIT. WRIST BAND REMOVED. PT SCHEDULED TO BE TAKEN TO [facility]. ALL PT BELONGINGS AND PAPERWORK WITH PT. PT IN STABLE CONDITION.
[2018-08-06] MEDS ORDERED: LACTOBACILLUS RHAMNOSUS GG 1 EACH CAP PO SCH (09:00)
[2018-08-06] MEDS ORDERED: PANTOPRAZOLE 40 MG TABEC PO SCH (09:00)
== END 2018-08-05 20:30 | disposition short-term general hospital (02) | DRG 444 ==
LOC: MED 22:02 → MTU 08-02 01:09
PROVIDERS: ADMIT General Practice; ATTEND General Practice
DX: K80.00 Calculus of gallbladder with acute cholecystitis without obstruction (principal); N17.0 Acute kidney failure with tubular necrosis; I50.43 Acute on chronic combined systolic (congestive) and diastolic (congestive) heart failure; I42.9 Cardiomyopathy, unspecified; K21.9 Gastro-esophageal reflux disease without esophagitis; E87.8 Other disorders of electrolyte and fluid balance, not elsewhere classified; E78.5 Hyperlipidemia, unspecified; E80.6 Other disorders of bilirubin metabolism; E83.39 Other disorders of phosphorus metabolism; E66.9 Obesity, unspecified; F10.10 Alcohol abuse, uncomplicated; F15.10 Other stimulant abuse, uncomplicated; J44.9 Chronic obstructive pulmonary disease, unspecified; E78.00 Pure hypercholesterolemia, unspecified; T50.905A Adverse effect of unspecified drugs, medicaments and biological substances, initial encounter; I48.2 Chronic atrial fibrillation; I11.0 Hypertensive heart disease with heart failure; Z79.01 Long term (current) use of anticoagulants; Z79.82 Long term (current) use of aspirin; Z95.810 Presence of automatic (implantable) cardiac defibrillator; Z87.891 Personal history of nicotine dependence; Z68.36 Body mass index [BMI] 36.0-36.9, adult; Y92.89 Other specified places as the place of occurrence of the external cause; Y90.9 Presence of alcohol in blood, level not specified
CPT/HCPCS: 36415; 71045; 76705; 78445; 80048; 80053; 80305; 81003; 82150; 83036; 83690; 83735; 83880; 84100; 84134; 84436; 84443; 84484; 85025; 85610; 85730; 87040; 87081; 87086; 93005; 96361; 96374; 96375; 99285; C9113; J1940; J2270; J2543; J7030; J7042; Q0092

== ENCOUNTER 2019-01-27 17:06 | Emergency (ER) | payer OTHER, MEDICAID ==
[~2019-01-27] VITALS: Ht 170.2 cm; Wt 100.7 kg
[~2019-01-27 17:06] MED LIST changes: -Acetaminophen PO; -CARV3.122 PO; -CLIN300C6 PO; -COL250 PO; +LACT10CA PO; -LEVO750T2 PO; -NYST100022 PO; -PANT40EC PO; +PANT40EC28 PO; -SACC250C1 PO; +SIMV40TA5 PO; -ZOLP5TAB1 PO; +ZOS2.25PM IV
[2019-01-27 17:10] VITALS: BP 116/84
--- NOTE | 2019-01-27 17:10 | NUR ---
PT AMBULATED TO BED 7 AT THIS TIME
--- NOTE | 2019-01-27 17:19 | NUR ---
PT STATES HE'S BEEN FEELING INCREASINGLY WEAK X 4 DAYS. PT A/OX4, ABLE TO AMBULATE WITH STEADY GAIT AND HAS EQUAL MUSCLE LENS DOTTER BILAT. DENIES CP/SOB/FEVERS/NVD. 0/10 PAIN. VENTRICULAR PACED RHYTHM ON MONITOR SWITCHING TO AFIB. ADMITS TO HAVING ICD. DENIES SEEING PCP REGULARLY STATING HE ONLY FOLLOWS UP WITH HIS WEB CONTENT COORDINATOR. +2 EDEMA BILAT LOWER EXTREMITIES, BRISK CAP REFILL. HX--AFIB, HTN, CHF MEDS--WARFARIN, METOPROLOL, AMIODARONE, LISINOPRIL
--- NOTE | 2019-01-27 17:25 | NUR ---
DR. VELOZ AT [facility].
--- NOTE | 2019-01-27 17:35 | NUR ---
XRAY AT BEDSIDE
[2019-01-27 17:53] LABS: BASOPHILS % (AUTO) 0.7 % (0.0-2.0); EOSINOPHILS # (AUTO) 0.1 K/uL (0-0.4); EOSINOPHILS % (AUTO) 1.1 % (0.0-4.0); HEMATOCRIT 48.8 % (36-52); HEMOGLOBIN 16.3 g/dL (12.0-18.0); LYMPHOCYTES # (AUTO) 1.4 K/uL (2.0-11.5); LYMPHOCYTES % (AUTO) 25.1 % (20.5-51.1); MEAN CORPUSCULAR HEMOGLOBIN 30 pg (27-31); MEAN CORPUSCULAR HGB CONC 33 g/dL (33-37); MEAN CORPUSCULAR VOLUME 88.3 fL (80-94); MONOCYTES # (AUTO) 0.6 K/uL (0.8-1.0); NEUTROPHILS # (AUTO) 3.4 K/uL (1.8-7.7); NEUTROPHILS % (AUTO) 62.1 % (42.2-75.2); PLATELET COUNT (AUTO) 339 K/uL (140-450); RED BLOOD CELL COUNT(AUTO) 5.53 MIL/uL (4.20-6.10); RED CELL DISTRIBUTION WIDTH 15.8 % (11.6-13.7); WHITE BLOOD COUNT (AUTO) 5.4 K/uL (4.8-10.8)
[2019-01-27 17:58] LABS: ANION GAP 16.6 (8-16); CARBON DIOXIDE 22.8 mmol/L (21-32); CREATININE 2.1 mg/dL (0.7-1.3); POTASSIUM 4.4 mmol/L (3.5-5.1)
[2019-01-27 18:04] LABS: ALBUMIN 3.1 g/dL (3.4-5.0)
[2019-01-27] MEDS ORDERED: NACL 0.9% 1,000 ML IV ONE (19:00)
--- NOTE | 2019-01-27 20:00 | NUR ---
LAB CALLED, WAITING FOR AIDEE TO TRACK LAYING EQUIPMENT OPERATOR BLOOD AT THIS TIME TO BRING TO [place] FOR SEND OUT. DR. BANDA MADE AWARE.
--- NOTE | 2019-01-27 21:17 | NUR ---
REPORT TO SMILEY VOSS TRANSFER OF CARE AT THIS TIME
--- NOTE | 2019-01-27 22:10 | NUR ---
PT HOB ELEVATED, PT RESTING COMFORTABLY; COMFORT MEASURES PROVIDED. PT STATES 0/10 AT THIS TIME. PT ACTING APPROPRIATLY. WILL CONTINUE TO MONITOR.
--- NOTE | 2019-01-27 23:05 | NUR ---
Dr. Fenton evaluating patient at bedside.
[2019-01-27 23:15] VITALS: BP 139/56
--- NOTE | 2019-01-27 23:15 | NUR ---
Patient discharged with v/s stable. Patient states he is ready to go home; 0/10 pain at this time; patient acting appropriatly. IV d/c tip intact; pressure and bandage applied; sight benign. Written and verbal after care instructions given and explained. Patient verbalized understanding. Ambulatory with steady gait. All questions addressed prior to discharge. Advised to follow up with PMD.
== END 2019-01-27 23:15 | disposition home or self-care (01) ==
LOC: MED 17:06
DX: R53.1 Weakness (principal); I48.91 Unspecified atrial fibrillation; N28.9 Disorder of kidney and ureter, unspecified; I11.0 Hypertensive heart disease with heart failure; I50.9 Heart failure, unspecified; J44.9 Chronic obstructive pulmonary disease, unspecified; Z79.01 Long term (current) use of anticoagulants; Z90.49 Acquired absence of other specified parts of digestive tract; Z95.0 Presence of cardiac pacemaker; Z79.899 Other long term (current) drug therapy
CPT/HCPCS: 36415; 71045; 80053; 83880; 84484; 85025; 85610; 85730; 93005; 96360; 99284; J7030; Q0092

== ENCOUNTER 2019-02-19 08:58 | Inpatient (IN) | payer OTHER, MEDICAID ==
[~2019-02-19] VITALS: Ht 167.6 cm; Wt 97.1 kg
[2019-02-19 09:03] VITALS: BP 144/102
--- NOTE | 2019-02-19 09:08 | NUR ---
PT AMBULATED TO BED 12
--- NOTE | 2019-02-19 09:15 | NUR ---
54 YO/M BIB SELF WITH CHIEF C/O GENERAL WEAKNESS, PRODCUTIVE COUGH AND NIGHT SWEATS X5 DAYS. PT DENIES HEMOPTYSIS. AFEBRILE. -N/V/D. PMH: CHF, CHOLECYSTECTOMY, DEFIB/PACEMAKER. PT CONNECTED TO MONITOR, SIDERAIL UP X1 FOR SAFETY. PENDING ER MD EVALUATION.
[2019-02-19 09:53] LABS: BASOPHILS % (AUTO) 0.5 % (0.0-2.0); EOSINOPHILS # (AUTO) 0.1 K/uL (0-0.4); HEMATOCRIT 44.5 % (36-52); HEMOGLOBIN 14.9 g/dL (12.0-18.0); LYMPHOCYTES # (AUTO) 1.3 K/uL (2.0-11.5); LYMPHOCYTES % (AUTO) 20.1 % (20.5-51.1); MEAN CORPUSCULAR HEMOGLOBIN 29 pg (27-31); MEAN CORPUSCULAR HGB CONC 34 g/dL (33-37); MEAN CORPUSCULAR VOLUME 87.2 fL (80-94); MONOCYTES # (AUTO) 0.6 K/uL (0.8-1.0); MONOCYTES % (AUTO) 9.4 % (1.7-9.3); NEUTROPHILS # (AUTO) 4.5 K/uL (1.8-7.7); PLATELET COUNT (AUTO) 247 K/uL (140-450); RED CELL DISTRIBUTION WIDTH 14.7 % (11.6-13.7); WHITE BLOOD COUNT (AUTO) 6.5 K/uL (4.8-10.8)
[2019-02-19 10:11] LABS: ALBUMIN 2.6 g/dL (3.4-5.0); ANION GAP 13.8 (8-16); CARBON DIOXIDE 21.4 mmol/L (21-32); CREATININE 1.4 mg/dL (0.7-1.3); POTASSIUM 4.2 mmol/L (3.5-5.1); PROTHROMBIN TIME 22.8 secs (10.8-13.4); TOTAL BILIRUBIN 1.4 mg/dL (0.0-1.0)
[2019-02-19 10:17] LABS: D-DIMER < 100 ng/ml (0-400)
[2019-02-19 10:23] LABS: ACETONE, SERUM NEGATIVE (NEGATIVE)
[2019-02-19] MEDS ORDERED: NACL 0.9% 500 ML IV SCH (10:32)
[2019-02-19] MEDS ORDERED: PIPERACILLIN/TAZOBACTAM 3.375 GM in DEXTROSE 5% 50 ML IV ONE (10:35)
[2019-02-19] MEDS ORDERED: LACTATED RINGERS 1,000 ML IV ONE (10:35)
[2019-02-19 10:36] LABS: MAGNESIUM 1.8 mg/dL (1.8-2.4); URIC ACID 4.5 mg/dL (2.6-7.2)
[2019-02-19 10:55] LABS: APPEARANCE,URINE CLEAR (CLEAR); BILIRUBIN,URINE NEGATIVE (NEGATIVE); BLOOD, URINE NEGATIVE (NEGATIVE); COLOR,URINE YELLOW (YELLOW); LEUKOCYTE ESTERASE ,URINE NEGATIVE (NEGATIVE); NITRITE, URINE NEGATIVE (NEGATIVE); PH,URINE 5.5 (5.0-9.0); UGLUCOSE NEGATIVE (NEGATIVE)
[2019-02-19] MEDS ORDERED: ONDANSETRON 4 MG/2 ML VIAL IM/IVP PRN (10:55)
[2019-02-19] MEDS ORDERED: MORPHINE SULFATE 2 MG/ML SYR IVP PRN (10:55)
[2019-02-19] MEDS ORDERED: DOCUSATE SODIUM 100 MG GELCAP PO PRN (10:55)
[2019-02-19] MEDS: NACL 0.9% 1,000 ML IV SCH (10:55)
[2019-02-19] MEDS ORDERED: HYDROcodone/APAP 7.5/325 MG 1 TAB PO PRN (10:55)
[2019-02-19] MEDS ORDERED: PIPERACILLIN/TAZOBACTAM 3.375 GM VIAL IV ONE (10:57)
[2019-02-19 11:31] LABS: RBC,URINE NONE SEEN /HPF (0-5); WBC,URINE 0-5 /HPF (0-5)
--- NOTE | 2019-02-19 12:00 | NUR ---
RECEIVED PT FROM ED NURSE FELIPE. PT IS AWAKE, ALERT, COOPERATIVE, AND AMBULATORY. NO S/S OF ACUTE DISTRESS OR SOB AT THIS TIME. PT IS ON 2L O2 NC. SKIN IS INTACT. IV SITE IS IN THE L HAND, 20 G. VS UPON ADMISSION: BP 117/86, HR 83, 02 97%, TEMP 97.9 ORAL, RR 18. CALL LIGHT GIVEN WITHIN REACH, WILL CONTINUE TO MONITOR.
--- NOTE | 2019-02-19 12:12 | NUR ---
Pt admitted to Tele Rm 107B in stable condition. Report given to BIPIN Poon at approx 1205. Transfer of care at this time.
[2019-02-19 13:00] VITALS: BP 117/86
[2019-02-19 14:04] LABS: CHOL/HDL RATIO 4.4 (1-4.5); FREE T4 (FREE THYROXINE) 1.63 ng/dL (0.76-1.46); MAGNESIUM 2.1 mg/dL (1.8-2.4); PHOSPHORUS 3.5 mg/dL (2.5-4.9); THYROID STIMULATING HORMONE 0.77 uIU/mL (0.34-3.74)
[2019-02-19] MEDS ORDERED: METO50TE2 PO (15:21)
[2019-02-19] MEDS ORDERED: AMIO200T5 PO (15:21)
[2019-02-19] MEDS ORDERED: LISI5TAB18 PO (15:22)
--- NOTE | 2019-02-19 15:35 | NUR ---
MRSA NASAL SWAB TAKEN TO LAB
[2019-02-19 16:00] VITALS: BP 118/75
[2019-02-19] MEDS: FUROSEMIDE 40 MG TAB PO SCH (16:46)
[2019-02-19] MEDS: WARFARIN 5 MG TAB PO SCH (16:46)
--- NOTE | 2019-02-19 16:59 | NUR ---
SCHEDULED MEDS GIVEN. INCENTIVE SPIROMETER PROVIDED AND EDUCATED ON HOW TO USE. PT INSTRUCTED TO GIVE URINE SAMPLE FOR DRUG SCREEN. WILL CONTINUE TO MONITOR.
[2019-02-19] MEDS ORDERED: AZITHROMYCIN 250 MG TAB PO SCH (17:00)
[2019-02-19 19:23] LABS: BARBITURATE, URINE NEG. ng/ml (NEG <=200); BENZODIAZEPINE, URINE NEG. ng/mL (NEG <=200); CANNABINOID, URINE NEG. ng/mL (NEG <=50); COCAINE, URINE NEG. ng/mL (NEG <=300); OPIATE, URINE NEG. ng/mL (NEG <=2000); PHENCYCLIDINE SCREEN,URINE NEG. ng/mL (NEG <=25)
--- NOTE | 2019-02-19 19:41 | NUR ---
PT ENDORSED IN STABLE CONDITION TO CUTTER GR[employer] TOOL TECHNICIAN NURSE
--- NOTE | 2019-02-19 19:42 | NUR ---
RECEIVED BEDSIDE REPORT FROM DAY SHIFT NURSE FABIAN RN, PT STABLE NO DISTRESS NOTED, IV TO L HAND 20G PATENT, INTACT, INFUSING NS @ 10ML/HR, INFUSING WELL, PT ON 2LPM O2 VIA NC, NO SOB NOTED, DENIES ANY PAIN AT THIS MOMENT, INITIAL ASSESSMENT DONE, ALL SAFETY PRECAUTION MET, CALL LIGHT WITHIN REACH, WILL CONTINUE TO MONITOR.
[2019-02-19 20:00] VITALS: BP 121/84
[2019-02-19] MEDS: ALBUTEROL SULFATE/IPRATROPIU 3 ML SOL IH PRN (20:20)
[2019-02-19] MEDS ORDERED: traZODone 50 MG TAB PO ONE (20:40)
--- NOTE | 2019-02-19 20:40 | NUR ---
NOTIFIED DR. HAYNES REGARDING PT REQUESTING SLEEPING MEDICATION, DR. NICE UNDERSTANDING WILL PUT IN ORDER FOR TRAZODONE. WILL CONTINUE WITH ORDERS. Addendum: 02/20/19 at 0140 by Katty Palomino RN MEDICATION ADMINISTERED, PT TOLERATED WELL. NO DISTRESS NOTED, CALL LIGHT WITHIN REACH, WILL CONTINUE TO MONITOR.
[2019-02-20] VITALS: BP 103/67
--- NOTE | 2019-02-20 00:10 | NUR ---
CHECKED ON PT, V/S TAKEN, WNL, CALL LIGHT WITHIN REACH, PT SLEEPING, WILL CONTINUE TO MONITOR.
--- NOTE | 2019-02-20 03:45 | NUR ---
PT SLEEPING, V/S TAKEN, WNL, CALL LIGHT WITHIN REACH, WILL CONTINUE TO MONITOR.
[2019-02-20 04:00] VITALS: BP 105/71
--- NOTE | 2019-02-20 06:17 | NUR ---
PT RESTING ON BED, NO DISTRESS NOTED, CALL LIGHT WITHIN REACH, WILL CONTINUE TO MONITOR.
--- NOTE | 2019-02-20 07:24 | NUR ---
ENDORSED PT TO DAY SHIFT NURSE SITAL RN, PT STABLE, NO DISTRESS NOTED. CALL LIGHT WITHIN REACH.
--- NOTE | 2019-02-20 07:25 | NUR ---
RECEIVED REPORT FROM PM NURSE . PT SLEEPING COMFORTABLY INN HIS BED. PT ON O2 2LPM VIA NC, DX PNA. SKIN IS INTACT. NO SIGN OF DISTRESS NOTED. PT ON ABX FOR PNA TREATMENT. VS RECORDED NORMAL. PT HAS IV ACCESS LFT HAND 20 G, NS INFUSING AT 10 ML/HR. CALL LIGHT WITHIN PT REACH. INFORMED TO USE CALL LIGHT FOR HELP. WILL CONTINUE TO MONITOR PT.
[2019-02-20 07:47] VITALS: BP 97/72
[2019-02-20 08:18] LABS: ANION GAP 11.2 (8-16); CARBON DIOXIDE 26.2 mmol/L (21-32); CREATININE 1.6 mg/dL (0.7-1.3); POTASSIUM 4.4 mmol/L (3.5-5.1)
--- NOTE | 2019-02-20 08:27 | NUR ---
PATIENT HAS BEEN SCREENED AND CATEGORIZED MODERATE NUTRITION RISK. PATIENT WILL BE SEEN WITHIN 3-5 DAYS OF ADMISSION. 02/21/19DORETHA MERLOS RD
[2019-02-20 08:28] LABS: MAGNESIUM 2.1 mg/dL (1.8-2.4); PHOSPHORUS 4.2 mg/dL (2.5-4.9)
[2019-02-20 08:33] LABS: CHOL/HDL RATIO 4.4 (1-4.5)
[2019-02-20 08:39] LABS: BASOPHILS % (AUTO) 0.3 % (0.0-2.0); EOSINOPHILS # (AUTO) 0.1 K/uL (0-0.4); EOSINOPHILS % (AUTO) 1.9 % (0.0-4.0); HEMATOCRIT 42.1 % (36-52); HEMOGLOBIN 14.1 g/dL (12.0-18.0); LYMPHOCYTES # (AUTO) 1.4 K/uL (2.0-11.5); LYMPHOCYTES % (AUTO) 25.3 % (20.5-51.1); MEAN CORPUSCULAR HEMOGLOBIN 30 pg (27-31); MEAN CORPUSCULAR HGB CONC 33 g/dL (33-37); MEAN CORPUSCULAR VOLUME 88.7 fL (80-94); MONOCYTES # (AUTO) 0.6 K/uL (0.8-1.0); MONOCYTES % (AUTO) 10.9 % (1.7-9.3); NEUTROPHILS # (AUTO) 3.4 K/uL (1.8-7.7); NEUTROPHILS % (AUTO) 61.6 % (42.2-75.2); PLATELET COUNT (AUTO) 231 K/uL (140-450); PROTHROMBIN TIME 22.7 secs (10.8-13.4); RED BLOOD CELL COUNT(AUTO) 4.74 MIL/uL (4.20-6.10); RED CELL DISTRIBUTION WIDTH 14.9 % (11.6-13.7); WHITE BLOOD COUNT (AUTO) 5.5 K/uL (4.8-10.8)
[2019-02-20] MEDS ORDERED: FUROSEMIDE 40 MG TAB PO SCH (09:00)
[2019-02-20] MEDS: METOPROLOL SUCCINATE 50 MG TABER PO SCH (09:22)
[2019-02-20] MEDS: FUROSEMIDE 40 MG TAB PO SCH ×2 (09:23→17:14)
[2019-02-20] MEDS: LACTOBACILLUS RHAMNOSUS GG 1 EACH CAP PO SCH (09:23)
[2019-02-20] MEDS: LISINOPRIL 5 MG TAB PO SCH (09:23)
[2019-02-20] MEDS: AMIODARONE 200 MG TAB PO SCH (09:24)
[2019-02-20] MEDS: NACL 0.9% 1,000 ML IV SCH (10:55)
--- NOTE | 2019-02-20 11:00 | NUR ---
CHECKED ON PT. SLEEPING COMFORTABLY IN HIS BED. NO SIGN OF DISTRESS NOTED. PT ASKING TO ADD EXTENSION TO HIS NC, TO GET EASY ACCESS TO RESTROOM. RT ADDED EXTENSION TO HIS NC TUBE. WILL CONTINUE TO MONITOR PT.
[2019-02-20 11:57] VITALS: BP 102/67
--- NOTE | 2019-02-20 13:52 | NUR ---
CHECKED ON THE PT, TALKING OVER HIS PHONE. LYING ON HIS BED , NO SIGN OF DISTRESS NOTED. ALL SAFETY MEASURE IN PLACE. CALL LIGHT WITHIN PT REACH. COLLECTED THE SPUTUM AND SENT IT TO LAB. WILL CONTINUE TO MONITOR PT.
--- NOTE | 2019-02-20 14:49 | NUR ---
WALKED WITH PATIENT AROUND THE LOBBY. PT SLIGHTLY COUGHING. TOLERATED WELL. O2 95%V ON RA. WILL CONTINUE TO MONITOR OXYGEN SATURATION OF THE PATIENT. WILL CONTINUE TO MONITOR PT.
[2019-02-20] MEDS ORDERED: AZIT250T11 PO (15:23)
[2019-02-20] MEDS ORDERED: LACT10CA PO (15:23)
[2019-02-20] MEDS: ALBUTEROL SULFATE/IPRATROPIU 3 ML SOL IH PRN (15:49)
[2019-02-20 16:00] VITALS: BP 114/69
[2019-02-20] MEDS: AZITHROMYCIN 250 MG TAB PO SCH (17:14)
[2019-02-20] MEDS: WARFARIN 5 MG TAB PO SCH (17:15)
--- NOTE | 2019-02-20 19:05 | NUR ---
ENDORSED PT TO PM NURSE AT BEDSIDE. PT IN STABLE CONDITION.
--- NOTE | 2019-02-20 19:06 | NUR ---
RECEIVED BEDSIDE REPORT FROM DAY SHIFT NURSE. PT IN STABLE CONDITION. IV SITE L HAND 20G, RUNNING WITH NS @10MLS/HR. PATENT AND INTACT. PATIENT IN ROOM AIR AND NO S/S OF ANY RESPIRATORY DISTRESS NOTED. BREATHING EVENLY AND UNLABORED. ALL STANDARD PRECAUTION ARE MET. BED IN LOW POSITION. CALL LIGHT WITHIN REACH.
[2019-02-20 20:00] VITALS: BP 94/63
[2019-02-20] MEDS ORDERED: traZODone 50 MG TAB PO SCH (21:00)
--- NOTE | 2019-02-20 21:12 | NUR ---
TRAZODONE GIVEN PO. PT TOLERATED WELL. WILL CONTINUE TO MONITOR.
[2019-02-21] VITALS: BP 104/71
[2019-02-21] MEDS: ACETAMINOPHEN 325 MG TAB PO PRN (00:11)
--- NOTE | 2019-02-21 00:11 | NUR ---
BT 100.[address] ORDERED. PT TOLERATED WELL. WILL CONTINUE TO MONITOR.
--- NOTE | 2019-02-21 01:30 | NUR ---
RECHECKED TEMP AFTER TYLENOL GIVEN. BT 98.6 F NOTED. WILL CONTINUE TO MONITOR.
--- NOTE | 2019-02-21 03:58 | NUR ---
PT SLEEPING IN BED COMFORTABLY. VITAL SIGN TAKEN. PT IN STABLE CONDITION WITH PT'S BASELINE. WILL CONTINUE TO MONITOR. Addendum: 02/21/19 at 0506 by Alexander Booker RN BT RETAKEN 98.6 F.
[2019-02-21 04:00] VITALS: BP 93/64
--- NOTE | 2019-02-21 07:18 | NUR ---
ENDORSED PATIENT TO DAY SHIFT NURSEMARLEY. PT IN STABLE CONDITION. CALL LIGHT WITHIN REACH.
--- NOTE | 2019-02-21 07:19 | NUR ---
SBAR REPORT RECEIVED AT PT BEDSIDE. PATIENT RESTING IN BED. ALERT AND ORIENTED. ON ROOM AIR. NO ACUTE RESPIRATORY DISTRESS NOTED. DENIES PAIN. IV SITE PATENT AND INTACT. CALL LIGHT WITHIN REACH.
[2019-02-21 08:00] VITALS: BP 103/58
[2019-02-21 08:31] LABS: PROTHROMBIN TIME 35.2 secs (10.8-13.4)
[2019-02-21] MEDS: LISINOPRIL 5 MG TAB PO SCH (09:53)
[2019-02-21] MEDS: METOPROLOL SUCCINATE 50 MG TABER PO SCH (09:54)
[2019-02-21] MEDS: FUROSEMIDE 40 MG TAB PO SCH (09:55)
[2019-02-21] MEDS: AMIODARONE 200 MG TAB PO SCH (09:55)
[2019-02-21] MEDS: NACL 0.9% 1,000 ML IV SCH (09:56)
[2019-02-21] MEDS: LACTOBACILLUS RHAMNOSUS GG 1 EACH CAP PO SCH (11:01)
--- NOTE | 2019-02-21 11:40 | NUR ---
PATIENT ASSISTED TO BATHROOM. AMBULATORY, WITH STEADY GAIT. ON ROOM AIR. PATIENT TOOK A SHOWER, NO ACUTE DISTRESS NOTED. LINENS CHANGED.
[2019-02-21 12:00] VITALS: BP 90/55
[2019-02-21 12:29] LABS: HEMATOCRIT 43.6 % (36-52); HEMOGLOBIN 14.4 g/dL (12.0-18.0); MEAN CORPUSCULAR HEMOGLOBIN 29 pg (27-31); MEAN CORPUSCULAR HGB CONC 33 g/dL (33-37); MEAN CORPUSCULAR VOLUME 89.3 fL (80-94); PLATELET COUNT (AUTO) 282 K/uL (140-450); RED BLOOD CELL COUNT(AUTO) 4.88 MIL/uL (4.20-6.10); RED CELL DISTRIBUTION WIDTH 14.8 % (11.6-13.7); WHITE BLOOD COUNT (AUTO) 9.6 K/uL (4.8-10.8)
[2019-02-21 12:33] LABS: ANION GAP 12.4 (8-16); CARBON DIOXIDE 26.8 mmol/L (21-32); CREATININE 1.6 mg/dL (0.7-1.3); POTASSIUM 4.2 mmol/L (3.5-5.1)
[2019-02-21 12:57] LABS: BASOPHILS % (MANUAL) 0 % (0-2); EOSINOPHILS % (MANUAL) 4 % (0-4); LYMPHOCYTES % (MANUAL) 17 % (20-46); MONOCYTES % (MANUAL) 11 % (5-12)
--- NOTE | 2019-02-21 14:20 | NUR ---
PATIENT CONTINUES OFF O2. DENIES RESPIRATORY DISTRESS. NO ACUTE DISTRESS NOTED. AMBULATORY. ALERT AND ORIENTED.
[2019-02-21 16:00] VITALS: BP 107/75
[2019-02-21] MEDS: AZITHROMYCIN 250 MG TAB PO SCH (16:41)
--- NOTE | 2019-02-21 17:50 | NUR ---
PATIENT IV LEAKING. IV REMOVED, CANULA INTACT. NEW IV INSERTED ON LFA, NO ACUTE DISTRESS NOTED.
--- NOTE | 2019-02-21 19:18 | NUR ---
SBAR REPORT GIVEN TO NIGHT RN AT PT BEDSIDE. NO ACUTE DISTRESS NOTED. PATIENT SEEN BY DR. SORIANO, NO NEW ORDERS.
--- NOTE | 2019-02-21 19:19 | NUR ---
RECEIVED BEDSIDE REPORT FROM DAY SHIFT NURSE. PT A, O X 4. PT ON TELEMONITOR. PT AMBULATORY. IV SITE L FOREARM 22G, RUNNING WITH NS @40 MLS/HR. PATENT AND INTACT. PATIENT IN ROOM AIR AND NO S/S OF ANY RESPIRATORY DISTRESS NOTED. BREATHING EVENLY AND UNLABORED. ALL STANDARD PRECAUTION ARE MET. BED IN LOW POSITION. CALL LIGHT WITHIN REACH.
[2019-02-21] MEDS ORDERED: MELATONIN 3 MG TAB PO PRN (19:45)
--- NOTE | 2019-02-21 19:58 | NUR ---
MELATONIN ORDERED FOR SLEEPLESSNESS WILL CARRY OUT ORDERS
[2019-02-21 20:00] VITALS: BP 106/74
[2019-02-21] MEDS: ATORVASTATIN 20 MG TAB PO SCH ×2 (20:25→20:37)
--- NOTE | 2019-02-21 23:44 | NUR ---
PT'S BLOOD PRESSURE,LOW = 88/57, SD 67; INFORMED DR. LOMAS. PT FELT NAUSEA, PLACED PT IN [place]. PT AFEBRILE T= 98.5 F.
--- NOTE | 2019-02-21 23:49 | NUR ---
DR. LOMAS AT BEDSIDE. GIVEN ONDASETRON prn. WILL CARRY OUT DR'S ORDER
[2019-02-21] MEDS ORDERED: NACL 0.9% 500 ML IV ONE (23:50)
[2019-02-22] VITALS: BP 76/50
--- NOTE | 2019-02-22 00:17 | NUR ---
RECHECKED BP STILL LOW AT 76/50 [facility], MO 94. WILL CONTINUE TO MONITOR
[2019-02-22] MEDS: NACL 0.9% 1,000 ML IV SCH ×3 (00:40→13:19)
--- NOTE | 2019-02-22 03:41 | NUR ---
BP LOW 102/51 (63) HR: [address] LOMAS. WILL RECHECK LATER PER DR. LIVINGSTON
[2019-02-22 04:00] VITALS: BP_SYST 120; BP_SYST 88; BP_DIAS 59; BP_DIAS 68
--- NOTE | 2019-02-22 07:20 | NUR ---
ENDORSED FOR CONTINUITY OF CARE. PT IN STABLE CONDITION AT THIS TIME.
--- NOTE | 2019-02-22 07:30 | NUR ---
RECEIVED REPORT FROM SAT INSTRUCTOR, PT SEEN RESTING IN BED, IN NO RESPIRATORY DISTRESS, ON RA, WILL CONTINUE TO MONITOR
--- NOTE | 2019-02-22 07:30 | NUR ---
BP RECHECKED BP AT 88/59, IN 84. DR. LOMAS AWARE, SHE SAID TO ENCOURAGE AMBULATION
--- NOTE | 2019-02-22 07:40 | NUR ---
CHECKED PT'S VS, BP 100/54, SKIN PINK AND DRY, TAUGHT PT TO USE IS, PT IS AWARE AND SAYS HE HAS BEEN USING IT, WILL CONTINUE TO REINFORCE TEACHING, CALL LIGHT WITHIN REACH, WILL CONTINUE TO MONITOR
[2019-02-22 07:59] LABS: BASOPHILS % (AUTO) 0.2 % (0.0-2.0); EOSINOPHILS # (AUTO) 0.1 K/uL (0-0.4); EOSINOPHILS % (AUTO) 0.9 % (0.0-4.0); HEMATOCRIT 40.9 % (36-52); HEMOGLOBIN 13.5 g/dL (12.0-18.0); MEAN CORPUSCULAR HEMOGLOBIN 29 pg (27-31); MEAN CORPUSCULAR HGB CONC 33 g/dL (33-37); MEAN CORPUSCULAR VOLUME 88.6 fL (80-94); MONOCYTES # (AUTO) 0.7 K/uL (0.8-1.0); MONOCYTES % (AUTO) 8.7 % (1.7-9.3); PLATELET COUNT (AUTO) 269 K/uL (140-450); RED BLOOD CELL COUNT(AUTO) 4.61 MIL/uL (4.20-6.10); RED CELL DISTRIBUTION WIDTH 14.7 % (11.6-13.7); WHITE BLOOD COUNT (AUTO) 7.8 K/uL (4.8-10.8)
[2019-02-22 08:00] VITALS: BP 100/54
[2019-02-22 08:18] LABS: ANION GAP 12.5 (8-16); CARBON DIOXIDE 25.5 mmol/L (21-32); CREATININE 1.8 mg/dL (0.7-1.3)
[2019-02-22 08:56] LABS: PROTHROMBIN TIME 35.2 secs (10.8-13.4)
[2019-02-22] MEDS: METOPROLOL SUCCINATE 50 MG TABER PO SCH (09:00)
[2019-02-22] MEDS: LACTOBACILLUS RHAMNOSUS GG 1 EACH CAP PO SCH (09:03)
[2019-02-22] MEDS: AMIODARONE 200 MG TAB PO SCH (09:03)
[2019-02-22 09:05] LABS: LYMPHOCYTES % (AUTO) 12.9 % (20.5-51.1); NEUTROPHILS % (AUTO) 77.3 % (42.2-75.2)
[2019-02-22] MEDS: ALBUTEROL SULFATE/IPRATROPIU 3 ML SOL IH PRN (09:10)
--- NOTE | 2019-02-22 09:10 | NUR ---
CALLED DR. WRIGHT AND LET HER AWARE OF PT'S CRITICAL VALUE INR 3.87. ORDERED TO HOLD WARFARIN.
--- NOTE | 2019-02-22 09:30 | NUR ---
HELD METOPROLOL AND GAVE AMIODARONE PER MD ORDER, BP AT 0800 100/54, WILL CONTINUE TO MONITOR
[2019-02-22 12:00] VITALS: BP 100/62
--- NOTE | 2019-02-22 13:17 | NUR ---
PERFORMED ORTHOSTATIC HYPOTENSION TEST; SUPINE: 98/68 HR 89; SITTIN/60 HR 104; STANDIN/64 HR 92 PT TOLERATED TEST WELL, IS NOW SITTING ON THE EDGE OF THE BED, IN NO RESPIRATORY DISTRESS.
[2019-02-22 16:00] VITALS: BP 101/70
[2019-02-22] MEDS: AZITHROMYCIN 250 MG TAB PO SCH (17:24)
[2019-02-22] MEDS ORDERED: guaiFENesin DM SUGAR FREE 100 MG/5 ML UDBTL PO PRN (18:20)
--- NOTE | 2019-02-22 19:00 | NUR ---
ENDORSED PT TO HEAT TREATMENT TECHNICIAN RN, PT IN STABLE CONDITION, PT AWARE OF NEW BREATHING TX ATC
--- NOTE | 2019-02-22 19:01 | NUR ---
RECEIVED REPORT FROM AM NURSE . PT AWAKE, ALERT O X 4. PT PLACED ON O2 VIA NC BY RT 1 LPM. SKIN IS INTACT. NO SIGN OF DISTRESS NOTED. PT HAS IV ACCESS LFT HAND 20 G,SALINE LOCK. D/C IVF PER ORDER. CALL LIGHT WITHIN PT REACH. INFORMED TO USE CALL LIGHT. WILL CONTINUE TO MONITOR PT.
--- NOTE | 2019-02-22 19:31 | NUR ---
CALLED THE TRUNK LINE AND THE PAGER NO. OF DR. NJ. LEFT A MESSAGE NO NICHOLSON BACK YET RE: RESULT OF CHEST X-RAY CARDIOMEGALY AND MILD CONGESTION.
--- NOTE | 2019-02-22 19:38 | NUR ---
DR WALKER INFORMED ON THE RESULT OF CHEST X-RAY. CARDIOMEGALY WITH UNCHANGED PUL CONGESTION R BASILAR ATELECTASIS INFILTRATE
[2019-02-22 20:00] VITALS: BP 114/76
--- NOTE | 2019-02-22 20:00 | NUR ---
INFORMED DR LOMAS ON THE COUGH MED ROBITUSSIN DM FREE PRN NOT AVAILABLE AT THE [facility].
[2019-02-22] MEDS: BUDESONIDE 0.5 MG/2 ML NEBU INH SCH (20:01)
[2019-02-22] MEDS: ATORVASTATIN 20 MG TAB PO SCH (20:19)
[2019-02-22] MEDS ORDERED: BENZONATATE 100 MG CAPLF PO PRN (22:50)
[2019-02-22] MEDS ORDERED: guaiFENesin DM 200/20 MG-10 ML 10 ML UDC PO PRN (23:20)
--- NOTE | 2019-02-22 23:21 | NUR ---
TESSALON LISA NOT AVAILABLE AND THE DM SUGAR FREE AT THIS TIME AT THE [facility]. DR. ABEBE ROSSI. GREGG DM [address] [facility]
[2019-02-23] VITALS: BP 107/76
[2019-02-23] MEDS ORDERED: guaiFENesin DM 200/20 MG-10 ML 10 ML UDC PO SCH
[2019-02-23 04:00] VITALS: BP 110/76
--- NOTE | 2019-02-23 07:00 | NUR ---
RECEIVED BED SIDE REPORT FROM PITCH FILLER RN, PT IN AWAKE AND ORIENTED X4, RT AT BEDSIDE DOING BREATHING TX, IN NO RESPIRATORY DISTRESS, SKIN INTACT, PT IS AMBULATORY, PT IS CONTINENT, URINAL AT BEDSIDE, IV L FOREARM 22G SALINE LOCK, CLEAN DRY AND INTACT, TELE MONITOR IN PLACE, ABLE TO MAKE NEEDS KNOWN, CALL LIGHT WITHIN REACH, BED IN LOW POSITION, WILL CONTINUE TO MONITOR
[2019-02-23 07:01] LABS: BASOPHILS % (AUTO) 0.2 % (0.0-2.0); EOSINOPHILS % (AUTO) 0.4 % (0.0-4.0); HEMATOCRIT 41.3 % (36-52); HEMOGLOBIN 13.8 g/dL (12.0-18.0); LYMPHOCYTES # (AUTO) 1.1 K/uL (2.0-11.5); LYMPHOCYTES % (AUTO) 11.4 % (20.5-51.1); MEAN CORPUSCULAR HEMOGLOBIN 30 pg (27-31); MEAN CORPUSCULAR HGB CONC 34 g/dL (33-37); MEAN CORPUSCULAR VOLUME 88.6 fL (80-94); MONOCYTES # (AUTO) 0.7 K/uL (0.8-1.0); MONOCYTES % (AUTO) 7.1 % (1.7-9.3); NEUTROPHILS # (AUTO) 7.5 K/uL (1.8-7.7); NEUTROPHILS % (AUTO) 80.9 % (42.2-75.2); PLATELET COUNT (AUTO) 276 K/uL (140-450); RED BLOOD CELL COUNT(AUTO) 4.66 MIL/uL (4.20-6.10); RED CELL DISTRIBUTION WIDTH 14.5 % (11.6-13.7); WHITE BLOOD COUNT (AUTO) 9.3 K/uL (4.8-10.8)
[2019-02-23] MEDS: BUDESONIDE 0.5 MG/2 ML NEBU INH SCH ×2 (07:04→18:43)
[2019-02-23 07:08] LABS: ANION GAP 13.3 (8-16); CARBON DIOXIDE 23.9 mmol/L (21-32); CREATININE 1.5 mg/dL (0.7-1.3); POTASSIUM 4.2 mmol/L (3.5-5.1)
[2019-02-23 07:15] LABS: PROTHROMBIN TIME 26.1 secs (10.8-13.4)
--- NOTE | 2019-02-23 07:15 | NUR ---
ENDORSED TO AM SHIFT FOR CONTINUITY OF CARE.PT IN STABLE CONDITION
[2019-02-23] MEDS ORDERED: ATOR20TA40 PO (07:20)
--- NOTE | 2019-02-23 07:21 | NUR ---
PLACED PT ON 3L NASAL CANULA AND BEGAN TO SAT AT 91%. PT SAID HE DOES NOT FEEL ANY SOB. SAID PULM HELPED
--- NOTE | 2019-02-23 07:24 | NUR ---
MOVED UP TO 4L NASAL CANULA SINCE STILL SATTING LOW
[2019-02-23] MEDS ORDERED: AMOX-999 PO (07:25)
[2019-02-23 08:00] VITALS: BP 123/78
[2019-02-23] MEDS: LACTOBACILLUS RHAMNOSUS GG 1 EACH CAP PO SCH (08:59)
[2019-02-23] MEDS ORDERED: CARVEDILOL 3.125 MG TAB PO SCH ×2 (09:00)
[2019-02-23] MEDS: AMIODARONE 200 MG TAB PO SCH ×2 (09:01→21:00)
--- NOTE | 2019-02-23 09:05 | NUR ---
GAVE PT 0900 MEDS, PT TOLERATED WELL, EDUCATED PT ON S/E, WILL CONTINUE TO MONITOR
--- NOTE | 2019-02-23 09:10 | NUR ---
PATIENT AMBULATED AROUND THE HALLS ABOUT 3 TIMES, PATIENTS OXYGEN ON RA WHILE AMBULATING DROPPED DOWN TO 82%. DR COTA MADE AWARE. Addendum: 02/23/19 at 1545 by Shelly Patton RN WHEN PATIENT RESTING IN BED ON 4L NC, O2SAT AT 94%. WHEN PATIENT STARTED TO AMBULATE ON RA IT WAS 90% AND DROPPED DOWN TO 82%. PATIENT WENT BACK INTO BED AND 4L NC BACK ON, OXYGEN BACK UP TO 92%.
--- NOTE | 2019-02-23 10:50 | NUR ---
spoke with Mr. Harris about his level of activity. Dr. Bowman wanted pt ambulate to see how much o2 pt needed to keep o2 sat above 92%. spoke with laure mcadams and she stated that she walked with out o2 and o2 sat dropped to 82% pt short of breath and placed back on 4lnc. pt laying down on 4ln o2 sat was 93% then i had pt sit on edge of bed for 3mins and o2 sat on 4lnc was 90% then had pt stand for 3mins and o2 sat was 92% on 4lnc, had pt walk to door of his room on 4lnc and o2 sat was 88%. pt back to bed and o2 sat was 93%. at [address] bowman with results of o2 sat testing and recommended that the pt should use 4lnc to sustain the o2 sat of 92% or more.
--- NOTE | 2019-02-23 11:26 | NUR ---
PATIENT AWARE HE WILL BE DISCHARGED TODAY WITH OXYGEN. I TOLD PATIENT I WILL LET HIM KNOW WHEN WE HAVE FURTHER INFORMATION FROM WHEN OXYGEN WILL BE ARRIVING.
[2019-02-23] MEDS ORDERED: CARV3.122 PO (11:40)
[2019-02-23] MEDS ORDERED: [UNRECOGNIZED DRUG - CODE] PO (11:40)
[2019-02-23] MEDS ORDERED: BUDE1AER2 IH (11:40)
[2019-02-23] MEDS ORDERED: BENZ100C6 PO (11:40)
[2019-02-23] MEDS ORDERED: LEVO750T2 PO (11:40)
[2019-02-23] MEDS ORDERED: PRED10TA6 PO (11:46)
[2019-02-23 12:00] VITALS: BP 143/90
--- NOTE | 2019-02-23 12:45 | NUR ---
PATIENT IS EATING. NO SIGNS OF DISTRESS ON 4L NC. CALL LIGHT WITHIN REACH. WILL CONTINUE TO MONITOR
[2019-02-23] MEDS ORDERED: PRON INH (13:31)
--- NOTE | 2019-02-23 13:59 | NUR ---
DR COTA AWARE PATIENT HAS UNCONTROLLED AFIB AND HR UP TO 130. HE IS IN TO SEE THE PATIENT.
[2019-02-23] MEDS ORDERED: METO50TE2 PO (14:11)
[2019-02-23] MEDS ORDERED: DILTIAZEM 25 MG/5 ML VIAL IVP SCH ×2 (14:20→20:30)
--- NOTE | 2019-02-23 14:50 | NUR ---
PT'S BP 147/75, HR 130, DR LOMAX MADE AWARE, ORDERED EKG, PT MADE AWARE
--- NOTE | 2019-02-23 15:00 | NUR ---
PATIENT MADE AWARE THAT HE MAY NOT LEAVE TODAY D/T UNCONTROLLED AFIB. DR DESIR SAID DR SORIANO WILL COME TO SEE THE PATIENT.
[2019-02-23 16:00] VITALS: BP 134/85
[2019-02-23] MEDS: AZITHROMYCIN 250 MG TAB PO SCH (16:55)
--- NOTE | 2019-02-23 17:24 | NUR ---
RECEIVED PT FROM TOBY VOSS. PT LAYING IN BED. COUGHING. A/O X4. SKIN INTACT. L WRIST 22 G SL. IV CLEAN, DRY, INTACT. PT ABLE TO AMBULATE. CONTINENT. PT IN STABLE CONDITION. ABLE TO MAKE NEEDS KNOWN. BED IN LOWEST POSITION. CALL LIGHT WITHIN REACH. WILL CONTINUE TO MONITOR. Addendum: 02/23/19 at 2006 by Edel Yao RN WRONG TIME. 1923 IS CORRECT TIME.
--- NOTE | 2019-02-23 17:25 | NUR ---
Arranged home oxygen with [facility]. Spoke to Carlitos at [facility] and informed her patient will be discharged tomorrow in am. Home o2 at 4 liters.
--- NOTE | 2019-02-23 17:54 | NUR ---
IV HURTING, REMOVED IV. TIP INTACT. NEW IV PLACED ON L FA 22G. CLEAN, DRY AND INTACT
[2019-02-23] MEDS: ALBUTEROL SULFATE/IPRATROPIU 3 ML SOL IH SCH (18:43)
--- NOTE | 2019-02-23 19:23 | NUR ---
ENDORSED PT TO ASTROBIOLOGIST RN, GAVE BEDSIDE REPORT, PT IN STABLE CONDITION, ON 4L NC, IN NO RESPIRATORY DISTRESS, BED LOW, CALL LIGHT WITHIN REACH
[2019-02-23 19:45] VITALS: BP 124/82
--- NOTE | 2019-02-23 19:48 | NUR ---
PATIENT WAS ON 4LNC SATS 85%. PLACED PT ON OXYMIZER AT 6L. NO IMPROVEMENT. PT EVENTUALLY WENT TO 15 L OXYMIZER. AND SATS ARE 90%. PT HAS FEVER. RN WILL GIVE TYLENOL
[2019-02-23] MEDS: ACETAMINOPHEN 325 MG TAB PO PRN (19:50)
--- NOTE | 2019-02-23 19:59 | NUR ---
SPOKE WITH DR HAYNES REGARDING PATIENTS HEART RATE FLUCTUATING BETWEEN 138-140. SAID HE WILL COME AND CHECK ON PT.
--- NOTE | 2019-02-23 20:54 | NUR ---
CARDIZEM IV 10MG GIVEN PER ORDER. 142 PULSE BEFORE GIVEN. 122 PULSE AFTER GIVEN. Addendum: 02/23/19 at 2054 by Edel Yao RN CARDIZEM IV 10 MG GIVEN AT 2030 WITH HR 142/MIN. THEN POST CARDIZEM HR 122 AT 2037
[2019-02-23] MEDS ORDERED: WARFARIN 1 MG TAB PO SCH (21:00)
[2019-02-23] MEDS ORDERED: AMIODARONE 200 MG TAB PO SCH (21:00)
--- NOTE | 2019-02-23 21:31 | NUR ---
PT CURRENT TEMP 98.1F. CURRENT HR 104. PT IN STABLE CONDITION. WILL CONTINUE TO MONITOR.
[2019-02-23] MEDS: ATORVASTATIN 20 MG TAB PO SCH (21:46)
[2019-02-23] MEDS ORDERED: traZODone 50 MG TAB PO ONE (22:05)
--- NOTE | 2019-02-23 23:10 | NUR ---
PT LAYING IN BED. NO SIGNS OF RESP DISTRESS. ADMINISTERED MEDS. EDUCATED ON SIDE EFFECTS. VERBALIZED UNDERSTANDING. PT TOLERATED WELL. WILL CONTINUE TO MONITOR.
[2019-02-24] VITALS (7 sets, daily range): BP systolic 99–123; BP diastolic 66–80
[2019-02-24] MEDS: ALBUTEROL SULFATE/IPRATROPIU 3 ML SOL IH SCH ×4 (00:55→19:00)
--- NOTE | 2019-02-24 01:03 | NUR ---
LOWERED FIO2 TO 12 L OXYMIZER
--- NOTE | 2019-02-24 02:30 | NUR ---
PT SLEEPING IN BED. EASILY AWOKEN UPON CALLING NAME. NO SIGNS OF DISTRESS. BED IN LOWEST POSITION. CALL LIGHT WITHIN REACH. WILL CONTINUE TO MONITOR.
[2019-02-24] MEDS: ACETAMINOPHEN 325 MG TAB PO PRN (04:40)
--- NOTE | 2019-02-24 04:53 | NUR ---
ADMINISTERED MEDS. EDUCATED ON SIDE EFFECTS. PT VERBALIZED UNDERSTANDING. TOLERATED WELL. NO COMPLAINTS AT THIS TIME. WILL CONTINUE TO MONITOR.
--- NOTE | 2019-02-24 06:29 | NUR ---
LATEST TEMP TAKEN RESULT 99 F. WILL CONTINUE TO MONITOR.
[2019-02-24] MEDS ORDERED: methylPREDNISolone SS 125 MG/2 ML VIAL IVP SCH (06:30)
[2019-02-24] MEDS: BUDESONIDE 0.5 MG/2 ML NEBU INH SCH ×2 (07:00→19:00)
[2019-02-24] MEDS: PIPER/TAZO 3.375GM/D5W PREMIX 50 ML IV SCH ×3 (07:00→18:12)
--- NOTE | 2019-02-24 07:00 | NUR ---
IV ZOSYN 3.375 GM STARTED ON THE LT FA G22. STILL INFUSING.
[2019-02-24] MEDS ORDERED: PIPERACILLIN/TAZOBACTAM 3.375 GM VIAL IV ONE (07:03)
--- NOTE | 2019-02-24 07:20 | NUR ---
ENDORSED PT TO AM SHIFT RN. CURRENTLY ON 12 L OXIMIZER. PT IN STABLE CONDITION. AM SHIFT RN WILL GIVE CONTINUITY OF CARE.
--- NOTE | 2019-02-24 07:21 | NUR ---
RECEIVED BEDSIDE REPORT FROM HEALTH AND SAFETY TRAINER NURSE. PATIENT IS AWAKE, ALERT AND ORIENTEDX4. NO SIGNS OF RESP DISTRESS ON OXYMIZER 12L. SKIN IS INTACT. PATIENT IS AMBULATORY. GAIT IS STEADY. IV ON L WRIST 22G INFUSING ZOSYN AT 100. CLEAN, DRY AND INTACT. TELE MONITOR IN PLACE. PATIENT IS CONTINENT. URINAL AT BEDSIDE. PATIENT ABLE TO MAKE NEEDS KNOWN. CALL LIGHT WITHIN REACH. WILL CONTINUE TO MONITOR THE PATIENT
[2019-02-24] MEDS: LACTOBACILLUS RHAMNOSUS GG 1 EACH CAP PO SCH (08:22)
[2019-02-24] MEDS: METOPROLOL SUCCINATE 50 MG TABER PO SCH (08:24)
[2019-02-24] MEDS: AMIODARONE 200 MG TAB PO SCH ×2 (08:24→20:01)
--- NOTE | 2019-02-24 08:24 | NUR ---
PER DR COTA, GIVE AMIODARONE, AND RECHECK B/P AGAIN IN AN HR, IF IT IS GOOD GIVE CARDIZEM. HELD METOPROLOL PER PARAMETERS . ADMINISTERED MEDS. EDUCATED ON SIDE EFFECTS. PATIENT VERBALIZED UNDERSTANDING. BED IN LOW POSITION. CALL LIGHT WITHIN REACH. WILL CONTINUE TO MONITOR THE PATIENT.
[2019-02-24 08:57] LABS: PROTHROMBIN TIME 23.2 secs (10.8-13.4)
[2019-02-24 08:58] LABS: BASOPHILS % (AUTO) 0.2 % (0.0-2.0); EOSINOPHILS % (AUTO) 0.1 % (0.0-4.0); HEMATOCRIT 38.8 % (36-52); HEMOGLOBIN 12.9 g/dL (12.0-18.0); LYMPHOCYTES # (AUTO) 0.7 K/uL (2.0-11.5); LYMPHOCYTES % (AUTO) 5.9 % (20.5-51.1); MEAN CORPUSCULAR HEMOGLOBIN 29 pg (27-31); MEAN CORPUSCULAR HGB CONC 33 g/dL (33-37); MONOCYTES # (AUTO) 0.5 K/uL (0.8-1.0); MONOCYTES % (AUTO) 4.1 % (1.7-9.3); NEUTROPHILS % (AUTO) 89.7 % (42.2-75.2); PLATELET COUNT (AUTO) 288 K/uL (140-450); RED BLOOD CELL COUNT(AUTO) 4.41 MIL/uL (4.20-6.10); RED CELL DISTRIBUTION WIDTH 14.3 % (11.6-13.7); WHITE BLOOD COUNT (AUTO) 11.1 K/uL (4.8-10.8)
[2019-02-24 09:00] LABS: ANION GAP 11.7 (8-16); CARBON DIOXIDE 25.6 mmol/L (21-32); CREATININE 1.5 mg/dL (0.7-1.3); POTASSIUM 4.3 mmol/L (3.5-5.1)
[2019-02-24 09:11] LABS: MAGNESIUM 2.1 mg/dL (1.8-2.4); PHOSPHORUS 3.9 mg/dL (2.5-4.9)
[2019-02-24] MEDS: DILTIAZEM 30 MG TAB PO SCH ×3 (09:40→17:59)
--- NOTE | 2019-02-24 09:40 | NUR ---
B/P GOOD. GAVE CARDIZEM. EDUCATED ON SIDE EFFECTS. PATIENT VERBALIZED UNDERSTANDING. WILL CONTINUE TO MONITOR
--- NOTE | 2019-02-24 10:16 | NUR ---
PATIENT IS SLEEPING. NO SIGNS OF DISTRESS. WILL CONTINUE TO MONITOR THE PATIENT
--- NOTE | 2019-02-24 12:18 | NUR ---
DR DESIR MADE AWARE PATIENT OXYGEN SATS DROPPING TO 82% W 12L OXIMIZER. PATIENT SHOWS NO SYMPTOMS OF SOB AND DOES NOT COMPLAIN OF SOB. PATIENT STATES THAT HE HAD A COUGH ATTACK AND THAT CAUSES THE O2SATS TO DROP. OXIMIZER AT 15% O2SAT AT 90
--- NOTE | 2019-02-24 12:51 | NUR ---
abg drawn on rb without incident and results were called back to with no changes made
[2019-02-24] MEDS ORDERED: FUROSEMIDE 40 MG TAB PO SCH (13:00)
--- NOTE | 2019-02-24 13:36 | NUR ---
PT PLACED ON SUDHA V60 BIPAP SETTINS 08/01 RR12 FIO2 100% ALARMS ON AND AUDIBLE AND AMBU BAG AT HOB I\L TX GIVEN WITH DUONEB 3ML WITH NO ADVERSE REACTION POST TX B\S ARE CLEAR BILATERALLY, PT WEARING LARGE FACE MASK WITH PROTETIC GEL IN PLACE PT IS AWAKE AND ALERT Addendum: 02/24/19 at 1538 by Jossie Lynch RT PT IS UNABLE TO GIVE SPUTUM SAMPLE AT THIS TIME
--- NOTE | 2019-02-24 14:05 | NUR ---
ADMINISTERED MEDS. PATIENT TOLERATED WELL. EDUCATED ON SIDE EFFECTS. PATIENT VERBALIZED UNDERSTANDING. PATIENT LEFT IN STABLE CONDITION TO CT. RT SAID IT IS OK TO DISCONNECT FROM BIPAP AND PLACE PATIENT ON OXIMIZER 15L DURING TRANSPORT. WILL CONNECT PATIENT BACK TO BIPAP AND ZOSYN ONCE BACK FROM CT SCAN Addendum: 02/24/19 at 1407 by Shelly Patton RN 118/78 B/P HR 98 BEFORE MED ADMINISTRATION
--- NOTE | 2019-02-24 14:07 | NUR ---
02/24/19 RD INITIAL ASSESSMENT COMPLETED PLEASE REFER TO NUTRITION ASSESSMENT UNDER CARE ACTIVITY FOR ESTIMATED NUTRITIONAL NEEDS. 1. CONTINUE CARDIAC DIET TOLERATED 2. CARDIAC TLC DIET EDUCATION WAS PROVIDED 3. ENCOURAGE PO INTAKE 4. RD TO FOLLOW-UP 3-5 DAYS, MODERATE RISK DORETHA MERLOS, MAYO
--- NOTE | 2019-02-24 14:34 | NUR ---
PATIENT BACK IN BED WITH BIPAP BACK ON BY RT. ZOSYN INFUSING AT 100
--- NOTE | 2019-02-24 16:00 | NUR ---
PATIENT IS SLEEPING. EASILY AROUSABLE. WILL CONTINUE TO MONITOR
--- NOTE | 2019-02-24 16:31 | NUR ---
I SPOKE WITH ALBA FROM [facility] THIS P.M. ABOUT THE OXYGEN AND NEBULIZER FOR HOME. I INFORMED HER THAT THE PATIENT MAY BE GOING TO A SNF. SHE SAID TO CALL HER WHEN THE PATIENT WILL BE DISCHARGED AND WHETHER HE GOES TO SNF, OR HOME. PHONE FOR ALBA, .
[2019-02-24] MEDS ORDERED: WARFARIN 5 MG TAB PO SCH (17:00)
--- NOTE | 2019-02-24 17:05 | NUR ---
DR BROWN AWARE OF CT RESULTS. SHE SAID TO HOLD CARDIZEM FOR NOW AND CHECK B/P AGAIN IN AN HR. B/P WAS 104/67 HR 79.
--- NOTE | 2019-02-24 17:19 | NUR ---
DECREASE FIO2 TO .80 ON BIPAP SPO2 99
--- NOTE | 2019-02-24 17:20 | NUR ---
ASKED RT, KEN THAT WHEN THEY TAKE THE PATIENT OFF BIPAP TO PLEASE GET A SPUTUM CULTURE. KEN VERBALIZED UNDERSTANDING.
--- NOTE | 2019-02-24 18:00 | NUR ---
CALLED RT TO REMOVE PATIENT ON BIPAP. B/P 112/70 HR 72. ADMINISTERED MEDS. PATIENT TOLERATED WELL. EDUCATED ON SIDE EFFECTS. WILL CONTINUE TO MONITOR THE PATIENT.
--- NOTE | 2019-02-24 18:13 | NUR ---
ADMINISTERED PRN ANTIBIOTICS, PATIENT TOLERATING WELL. EDUCATED ON SIDE EFFECTS. WILL CONTINUE TO MONITOR THE PATIENT.
--- NOTE | 2019-02-24 19:10 | NUR ---
GAVE BEDSIDE REPORT TO BOILERMAKER CENTRAL STEAM PLANT NURSE. PATIENT ENDORSED IN STABLE CONDITION, RT AND RN AWARE OF NEED FOR SPUTUM CX
--- NOTE | 2019-02-24 19:30 | NUR ---
RECEIVED BEDSIDE REPORT FROM RN NAIN, PATIENT IN BED, AAOX4, ABLE TO MAKE NEEDS KNOWN, ON 15 L OXYMIZER O2SAT AT 92%, LUNG SOUNDS CLEAR, PATIENT DENIES PAIN, RR ARE EVEN AND NOT LABORED. LEFT WRIST 22 G SL, DRESSING INTACT. EDUCATED ABOUT NEED FOR SPUTUM TO CULTURE PATIENT VERBALIZED UNDERSTANDING. EXPLAINED TO PATIENT NEED FOR BIPAP WHEN SLEEPING, PATIENT VERBALIZED UNDERSTANDING.
[2019-02-24] MEDS: ATORVASTATIN 20 MG TAB PO SCH (20:01)
[2019-02-24] MEDS: FUROSEMIDE 40 MG TAB PO SCH (20:01)
--- NOTE | 2019-02-24 20:06 | NUR ---
DUE MEDICATIONS GIVEN, PATIENT O2 SAT 88-83 ON 15 L OXYMIZER. ADVISED TO PUT BIPAP BACK ON PATIENT STATED "NOT UNTIL 10 PM". WILL NOTIFY RT.
--- NOTE | 2019-02-24 20:45 | NUR ---
FAMILY AT BEDSIDE, BROUGHT PATIENT FRIED [employer]ICK[employer] FOR DINNER, EDUCATION PROVIDED ABOUT CARDIAC DIET. PATIENT STATED "OKAY".
--- NOTE | 2019-02-24 22:30 | NUR ---
COLLECTED SPUTUM AND SENT TO LAB
[2019-02-25] VITALS (7 sets, daily range): BP systolic 105–113; BP diastolic 58–85
[2019-02-25] MEDS: PIPER/TAZO 3.375GM/D5W PREMIX 50 ML IV SCH ×4 (00:06→20:40)
--- NOTE | 2019-02-25 00:13 | NUR ---
PATIENT REQUESTED SLEEPING PILL, CALLED DR HAYNES FOR ORDERS
--- NOTE | 2019-02-25 00:27 | NUR ---
PATIENT CHANGED MIND AND DOES NOT WANT TRAZODONE DUE TO POSSIBLE SIDE EFFECTS.
[2019-02-25] MEDS ORDERED: traZODone 50 MG TAB PO SCH (00:30)
[2019-02-25] MEDS: ALBUTEROL SULFATE/IPRATROPIU 3 ML SOL IH SCH ×4 (01:00→19:34)
--- NOTE | 2019-02-25 01:43 | NUR ---
RESTING IN BED, BIPAP ON, O2SAT AT 95%
--- NOTE | 2019-02-25 03:25 | NUR ---
CALLED LAB TO FOLLOW UP WITH SPUTUM, SPOKE WITH RAY, TOLD SAMPLE WAS NOT ENOUGH, WILL NOTIFY PATIENT AND COLLECT NEW SAMPLE.
--- NOTE | 2019-02-25 05:13 | NUR ---
PATIENT RESTING IN BED, NO SIGNS OF DISTRESS, WILL CONTINUE TO MONITOR
--- NOTE | 2019-02-25 05:48 | NUR ---
RT ABLE TO TITRATE FIO2 DURING CROP SPECIALIST WHILE PATIENT WAS ON BIPAP FROM %80 PERCENT TO %60 PERCENT FIO2. PATIENT STAYED ON BIPAP ALL NIGHT AND NO RESP DISTRESS NOTED OR SHORTNESS OF BREATH AND SATURATION AND HEART RATE WAS NORMAL.
[2019-02-25] MEDS: methylPREDNISolone SS 125 MG/2 ML VIAL IVP SCH ×3 (05:51→20:40)
--- NOTE | 2019-02-25 05:58 | NUR ---
DUE MEDICATIONS GIVEN, EDUCATION PROVIDED, O2 SAT 95% ON BIPAP FIO2 60%.
--- NOTE | 2019-02-25 07:16 | NUR ---
RCV'D PT ON BIPAP WITH CHARTED SETTINGS. PT AWAKE AND ALERT AND WANTS TO BE OFF BIPAP AND SEE HOW HE WILL DO. RN SUMMER AWARE. ASKED PT IF WE CAN DO HHN TX ON BIPAP THEN TAKE IT OFF. PT AGREED. SKIN INTACT. PT HAS LARGE MASK. BIPAP CONNECTED TO RED OUTLET. ALARMS AUDIBLE. NO DISTRESS NOTED. WILL CONTINUE TO MONITOR.
[2019-02-25] MEDS: BUDESONIDE 0.5 MG/2 ML NEBU INH SCH ×2 (07:18→19:34)
--- NOTE | 2019-02-25 07:23 | NUR ---
ENDORSED PATIENT TO DAY SHIFT NURSE MARLEY, PATIENT STABLE.
--- NOTE | 2019-02-25 07:24 | NUR ---
RECEIVED SBAR REPORT AT PT BEDSIDE. PATIENT SEEN RESTING IN BED, ON BIPAP. NO ACUTE RESPIRATORY DISTRESS NOTED. PATIENT IS ALERT AND ORIENTED, FOLLOWS COMMANDS. AFIB ON MONITOR, DENIES PAIN AT THIS TIME. PACEMAKER NOTED TO GRAEME. BED IN LOWEST POSITION, CALL LIGHT WITHIN REACH.
--- NOTE | 2019-02-25 07:58 | NUR ---
PT OF BIPAP TO EAT AND TAKE A BREAK FROM BIPAP PER HIS REQUEST. MD OROZCO AT BEDSIDE. PT'S SPO2 IS 85% ON 15 L OXIMIZER MD OROZCO AWARE. WILL CONTINUE TO MONITOR.
--- NOTE | 2019-02-25 08:08 | NUR ---
SPOKE WITH MD COCHRAN RESIDENT . HE IS AWARE OF PT'S SPO2 IN MID 80'S ON 15 L OXIMIZER.. PER MD COCHRAN HE WILL [employer] ATTORNEY FOR SUGGESTIONS AND WILL LET RT KNOW OF ANY NEW ORDER. PT SAID HE FEELS HE IS BREATHING OK. NO SOB OR DISTRESS NOTED. WILL CONTINUE TO MONITOR PT.
[2019-02-25 08:18] LABS: HEMATOCRIT 39.5 % (36-52); MEAN CORPUSCULAR HEMOGLOBIN 29 pg (27-31); MEAN CORPUSCULAR HGB CONC 33 g/dL (33-37); MEAN CORPUSCULAR VOLUME 87.7 fL (80-94); PLATELET COUNT (AUTO) 324 K/uL (140-450); RED CELL DISTRIBUTION WIDTH 14.3 % (11.6-13.7); WHITE BLOOD COUNT (AUTO) 18.7 K/uL (4.8-10.8)
[2019-02-25 08:26] LABS: PROTHROMBIN TIME 31.7 secs (10.8-13.4)
[2019-02-25] MEDS: AMIODARONE 200 MG TAB PO SCH (08:27)
[2019-02-25] MEDS: DILTIAZEM 30 MG TAB PO SCH ×4 (08:27→16:54)
[2019-02-25] MEDS: LACTOBACILLUS RHAMNOSUS GG 1 EACH CAP PO SCH (08:27)
[2019-02-25] MEDS: FUROSEMIDE 40 MG TAB PO SCH ×2 (08:28→20:40)
[2019-02-25 08:33] LABS: ANION GAP 12.4 (8-16); CARBON DIOXIDE 25.6 mmol/L (21-32); CREATININE 1.6 mg/dL (0.7-1.3)
--- NOTE | 2019-02-25 08:35 | NUR ---
DR COHEN AT BEDSIDE WITH PT, NOTIFIED HIM OF INCREASED HEARTRATE AND CURRENT OXIMIZER USAGE AND DECREASED 02 SATURATION. RT NOTIFIED WELL. GAVE SCHEDULED MEDICATIONS ORDERED, WILL CONTINUE TO MONITOR.
--- NOTE | 2019-02-25 08:42 | NUR ---
PT BACK ON BIPAP WITH SAME SETTINGS.
--- NOTE | 2019-02-25 08:45 | NUR ---
PT WAS PLACED BACK ON BIPAP BY RT. MORALES WNL. Addendum: 02/25/19 at 0848 by Phoenix Robles RN 02 SATURATION AT 94% WNL
[2019-02-25 08:50] LABS: MAGNESIUM 2.3 mg/dL (1.8-2.4); PHOSPHORUS 3.4 mg/dL (2.5-4.9)
[2019-02-25] MEDS: METOPROLOL SUCCINATE 50 MG TABER PO SCH (09:00)
[2019-02-25] MEDS ORDERED: FUROSEMIDE 40 MG TAB PO SCH (09:00)
[2019-02-25 09:04] LABS: LYMPHOCYTES % (MANUAL) 4 % (20-46); MONOCYTES % (MANUAL) 4 % (5-12)
--- NOTE | 2019-02-25 10:35 | NUR ---
PT PLACED ON HIGH FLOW NC. PT RESTING IN BED TALKING ON PHONE CURRENTLY, NO ACUTE DISTRESS.
--- NOTE | 2019-02-25 10:40 | NUR ---
PLACED PT ON HIGH FLOW. FIO2 70% FLOW 50. PT'S SPO2 IS 94%. TOLERATING WELL. WILL CONTINUE TO MONITOR.
--- NOTE | 2019-02-25 11:52 | NUR ---
Faxed facesheet and order to [facility] .
--- NOTE | 2019-02-25 12:08 | NUR ---
Spoke with Rodney Bryan from [place] . He will be coming to [facility] this afternoon to assess the pt.
[2019-02-25] MEDS ORDERED: methylPREDNISolone SS 40 MG/ML VIAL IVP SCH (13:00)
--- NOTE | 2019-02-25 13:50 | NUR ---
THERESA CAMPBELL DONE AT BEDSIDE. PT TO BE TRANSFERRED TO [facility]. DR WHITE MADE AWARE. PT AWAKE ON HIGH FLOW NC, NO ACUTE DISTRESS OR COMPLAINTS OR ANY KIND AT THIS TIME.
[2019-02-25] MEDS ORDERED: WARF5TAB1 PO ×2 (15:23)
[2019-02-25] MEDS ORDERED: ALBU3SOL83 IH (15:23)
[2019-02-25] MEDS ORDERED: FURO40TA9 IV (15:23)
[2019-02-25] MEDS ORDERED: DOCU-299 PO (15:23)
[2019-02-25] MEDS ORDERED: METO50TE2 PO (15:23)
[2019-02-25] MEDS ORDERED: ATOR20TA40 PO (15:23)
[2019-02-25] MEDS ORDERED: CAR30 PO (15:23)
[2019-02-25] MEDS ORDERED: SM1I IVP (15:23)
[2019-02-25] MEDS ORDERED: PUL.5N INH (15:23)
--- NOTE | 2019-02-25 16:40 | NUR ---
PT SITTING UP IN BED REQUESTING FAN TO BE TURNED ON IN ROOM FOR COMFORT. PT HAD NO OTHER REQUESTS AND STATES HE IS COMFORTABLE NOW WITH NO PAIN OR OBVIOUS SIGNS OF ACUTE DISTRESS.
--- NOTE | 2019-02-25 19:25 | NUR ---
SBAR REPORT GIVEN TO NIGHT RN AT PT BEDSIDE. NO ACUTE DISTRESS NOTED. CONTINUED ON HIFLOW NC.
--- NOTE | 2019-02-25 19:30 | NUR ---
RECEIVED BEDSIDE REPORT FROM RN MARLEY, PATIENT IN BED, AAOX4, ABLE TO MAKE NEEDS KNOWN, ON HIGH FLOW NC FIO2 AT 56.6%, O2SAT AT 95%, PATIENT DENIES PAIN, RR ARE EVEN AND NOT LABORED. LEFT WRIST 22 G SL, DRESSING INTACT. EXPLAINED PLAN OF CARE, AFIB ON TELE MONITOR.
--- NOTE | 2019-02-25 20:00 | NUR ---
RECEIVED PATIENT ON HIGH FLOW NASAL CANNULA, 56% FIO2 AT 50L. CONTINUOUS PULSE OX ON AND FUNCTIONING; ALARMS ON AND AUDIBLE. PULSE OX SAT 92%. SCHEDULED BREATHING TREATMENTS ADMINISTERED. TOLERATED TREATMENTS WELL, NO ADVERSE SIDE EFFECTS. ORAL RINSE DONE POST TX. PLACED PATIENT BACK ON HIGH FLOW CANNULA AT CONTINUED SETTINGS. BIPAP PRN ON STANDBY NO RESPIRATORY DISTRESS NOTED AT THIS TIME. WILL CONTINUE TO MONITOR.
[2019-02-25] MEDS: ATORVASTATIN 20 MG TAB PO SCH (20:41)
--- NOTE | 2019-02-25 20:55 | NUR ---
DUE MEDICATIONS GIVEN, EDUCATION PROVIDED. O2SAT 95% ON HIGH FLOW NC AT 56.6% FIO2.
--- NOTE | 2019-02-25 22:30 | NUR ---
PATIENT REQUESTED TO SPEAK WITH RT REGARDING WATER IN HIS TUBING, WILL CALL RT.
--- NOTE | 2019-02-25 22:40 | NUR ---
PATIENT COMPLAINING OF "WATER IN NASAL TUBING". REQUESTED TO BE PLACED ON BIPAP AT THIS TIME. PATIENT PLACED ON BIPAP ON DOCUMENTED SETTINGS. SEE RT NIPPV CHARTING. BIPAP CHECK DONE. BIPAP ALARMS ON AND AUDIBLE. SKIN PROTECTIVE GEL IN PLACE. SKIN INTACT, NO REDNESS. PATIENT CONNECTED TO CONTINUOUS PULSE OX. NO DISTRESS NOTED AT THIS TIME. WILL CONTINUE TO MONITOR.
[2019-02-26] VITALS: BP 116/60
--- NOTE | 2019-02-26 | NUR ---
DUE ZOSYN GIVEN, BP 116/60 HR 87, 92% O2SAT ON BIPAP.
[2019-02-26] MEDS: PIPER/TAZO 3.375GM/D5W PREMIX 50 ML IV SCH ×3 (00:03→14:02)
--- NOTE | 2019-02-26 01:58 | NUR ---
PATIENT REQUESTED BREATHING TREATMENT, CALLED RT.
[2019-02-26] MEDS: ALBUTEROL SULFATE/IPRATROPIU 3 ML SOL IH SCH ×3 (02:06→13:49)
--- NOTE | 2019-02-26 02:22 | NUR ---
BIPAP CHECK DONE. PATIENT TOLERATING BIPAP WELL. NO DISTRESS NOTED. SCHEDULED BREATHING TREATMENT ADMINISTERED IN-LINE WITH NIPPV. TOLERATED TX WELL, NO ADVERSE SIDE EFFECTS. NO RESPIRATORY DISTRESS NOTED AT THIS TIME. WILL CONTINUE TO MONITOR.
--- NOTE | 2019-02-26 03:56 | NUR ---
BIPAP CHECK DONE. NO DISTRESS NOTED. WILL CONTINUE TO MONITOR.
[2019-02-26 04:00] VITALS: BP 118/75
[2019-02-26] MEDS: methylPREDNISolone SS 125 MG/2 ML VIAL IVP SCH ×2 (05:35→14:01)
[2019-02-26] MEDS ORDERED: methylPREDNISolone SS 40 MG/ML VIAL IVP SCH (06:00)
[2019-02-26] MEDS: BUDESONIDE 0.5 MG/2 ML NEBU INH SCH (06:54)
--- NOTE | 2019-02-26 07:12 | NUR ---
ENDORSED PATIENT TO DAY SHIFT NURSE LUZ ELENA LEON.
--- NOTE | 2019-02-26 07:13 | NUR ---
RECEIVED REPORT AT BEDSIDE FROM FIBERGLASSER NURSE TOSHIA FOR CONTINUITY OF CARE. PT IN STABLE CONDITION. PT RECEIVING BREATHING TREATMENT AT THIS TIME. IV INTACT AND PATENT. SAFETY MEASURES IN PLACE. BED IN LOW POSITION. CALL LIGHT AT BEDSIDE. WILL CONTINUE TO MONITOR.
[2019-02-26 08:00] VITALS: BP 131/81
[2019-02-26 08:11] LABS: BASOPHILS % (AUTO) 0.1 % (0.0-2.0); HEMATOCRIT 38.7 % (36-52); HEMOGLOBIN 12.9 g/dL (12.0-18.0); LYMPHOCYTES # (AUTO) 0.5 K/uL (2.0-11.5); LYMPHOCYTES % (AUTO) 2.4 % (20.5-51.1); MEAN CORPUSCULAR HEMOGLOBIN 29 pg (27-31); MEAN CORPUSCULAR HGB CONC 33 g/dL (33-37); MEAN CORPUSCULAR VOLUME 87.6 fL (80-94); MONOCYTES # (AUTO) 0.6 K/uL (0.8-1.0); MONOCYTES % (AUTO) 3.2 % (1.7-9.3); NEUTROPHILS # (AUTO) 17.9 K/uL (1.8-7.7); NEUTROPHILS % (AUTO) 94.3 % (42.2-75.2); PLATELET COUNT (AUTO) 368 K/uL (140-450); RED BLOOD CELL COUNT(AUTO) 4.42 MIL/uL (4.20-6.10); RED CELL DISTRIBUTION WIDTH 14.5 % (11.6-13.7); WHITE BLOOD COUNT (AUTO) 18.9 K/uL (4.8-10.8)
[2019-02-26 08:12] LABS: PROTHROMBIN TIME 33.9 secs (10.8-13.4)
[2019-02-26 08:23] LABS: ANION GAP 13.3 (8-16); CARBON DIOXIDE 26.2 mmol/L (21-32); CREATININE 1.9 mg/dL (0.7-1.3); POTASSIUM 3.5 mmol/L (3.5-5.1)
--- NOTE | 2019-02-26 08:30 | NUR ---
BIPAP PLACED BY RT PER PT REQUEST.
[2019-02-26 08:47] LABS: MAGNESIUM 2.2 mg/dL (1.8-2.4); PHOSPHORUS 5.3 mg/dL (2.5-4.9)
[2019-02-26] MEDS: METOPROLOL SUCCINATE 50 MG TABER PO SCH (09:35)
[2019-02-26] MEDS: LACTOBACILLUS RHAMNOSUS GG 1 EACH CAP PO SCH (09:36)
[2019-02-26] MEDS: FUROSEMIDE 40 MG TAB PO SCH (09:36)
[2019-02-26] MEDS: DILTIAZEM 30 MG TAB PO SCH ×3 (09:36→17:11)
--- NOTE | 2019-02-26 10:11 | NUR ---
Spoke with Rodney Bryan from [facility] . Pt can be transferred to [facility] today after 1900. Pt is going to room 311 B under the care of Dr. Gaviria.
--- NOTE | 2019-02-26 10:59 | NUR ---
Transportation arranged with [facility] . Pt will be picked up at 1900 from room 107 B and transported to [facility] [address] [address] to room 311 B under the care of Dr. Gaviria. Informed Jose RN/CN olive picker time at 1900.
--- NOTE | 2019-02-26 11:10 | NUR ---
PT IN STABLE CONDITION. VISITING WITH FAMILY AT BEDSIDE. WILL CONTINUE TO MONITOR.
[2019-02-26 12:00] VITALS: BP 143/80
--- NOTE | 2019-02-26 12:13 | NUR ---
PT ASKED TO SWITCH TO HIGH FLOW NASAL CANNULA. PTS DAUGHTER IS ON HER WAY TO VISIT SO HE WANTED TO BE ABLE TO SPEAK WITH HER WITH THE EASE OF THE NASAL CANNULA. PT COMFORTABLE ON 50LPM, 70% FIO2. PT STATED THE HEAT WAS TOO MUCH THIS MORNING SO THE TEMPERATURE WAS ADJUSTED TO 29 DEGREES. PT WAS ADVISED TO CALL IF HE EXPERIENCES ANY DISCOMFORT, DRYNESS, ETC.
--- NOTE | 2019-02-26 12:15 | NUR ---
PT ASKED IF HE WAS ABLE TO GET UP TO USE THE RESTROOM ON THE HIGH FLOW NASAL CANNULA. I BROUGHT A PORTABLE O2 TANK AND LEGAL SUPPORT SPECIALIST THE PTS ROOM AND HOOKED UP A NRB MASK. PT WAS ADVISED TO CALL THE NURSING STATION TO ASK THEM TO HELP HIM TO THE RESTROOM AND WITH GETTING SWITCHED OFF THE HIGH FLOW DEVICE TO THE NRB MASK.
--- NOTE | 2019-02-26 15:48 | NUR ---
ASSISTED PT TO BATHROOM FOR BOWEL MOVEMENT. PT TOLERATED WELL.
[2019-02-26 16:00] VITALS: BP 140/80
--- NOTE | 2019-02-26 17:00 | NUR ---
GAVE REPORT TO ZEFERINO Rosenbaum AT [facility]. ZEFERINO VERBALIZED UNDERSTANDING OF REPORT. ALL QUESTIONS ANSWERED AT THIS TIME.
--- NOTE | 2019-02-26 19:10 | NUR ---
GAVE DISCHARGE INSTRUCTIONS, PT VERBALIZED UNDERSTANDING. IV DISCONNECTED FROM PUMP, SALINE LOCK. TRANSFERRED FROM HIGH FLOW NASAL CANULA TO BIPAP FOR TRANSPORT. ID BAND REMOVED. GAVE REPORT TO TRANSPORT TEAM, TRANSPORT TEAM VERBALIZED UNDERSTANDING OF REPORT. ALL QUESTIONS ANSWERED AT THIS TIME. PT TRANSFERRED TO [facility] WITH ALL BELONGINGS. PT IN STABLE CONDITION.
[2019-02-27] MEDS ORDERED: WARFARIN 5 MG TAB PO SCH (17:00)
== END 2019-02-26 19:10 | DRG 682 ==
LOC: MED 08:58 → MTU 11:38
PROVIDERS: ADMIT General Practice; ATTEND General Practice
PROC: 5A09357 Assistance with Respiratory Ventilation, Less than 24 Consecutive Hours, Continuous Positive Airway Pressure (ICD-10-PCS; principal; 2019-02-24)
PROC: 5A09357 Assistance with Respiratory Ventilation, Less than 24 Consecutive Hours, Continuous Positive Airway Pressure (ICD-10-PCS; 2019-02-25)
DX: N17.0 Acute kidney failure with tubular necrosis (principal); J96.20 Acute and chronic respiratory failure, unspecified whether with hypoxia or hypercapnia; I50.43 Acute on chronic combined systolic (congestive) and diastolic (congestive) heart failure; J18.9 Pneumonia, unspecified organism; I13.0 Hypertensive heart and chronic kidney disease with heart failure and stage 1 through stage 4 chronic kidney disease, or unspecified chronic kidney disease; J44.1 Chronic obstructive pulmonary disease with (acute) exacerbation; J44.0 Chronic obstructive pulmonary disease with (acute) lower respiratory infection; I42.9 Cardiomyopathy, unspecified; E66.9 Obesity, unspecified; I48.2 Chronic atrial fibrillation; I48.91 Unspecified atrial fibrillation; E11.22 Type 2 diabetes mellitus with diabetic chronic kidney disease; E05.90 Thyrotoxicosis, unspecified without thyrotoxic crisis or storm; E78.2 Mixed hyperlipidemia; T46.2X5A Adverse effect of other antidysrhythmic drugs, initial encounter; Z68.34 Body mass index [BMI] 34.0-34.9, adult; Z71.3 Dietary counseling and surveillance; Z83.3 Family history of diabetes mellitus; Z87.891 Personal history of nicotine dependence; Z95.0 Presence of cardiac pacemaker; Z79.899 Other long term (current) drug therapy; Z90.49 Acquired absence of other specified parts of digestive tract; Z82.49 Family history of ischemic heart disease and other diseases of the circulatory system; Y92.89 Other specified places as the place of occurrence of the external cause
CPT/HCPCS: 36415; 36600; 71045; 71250; 80048; 80053; 80305; 81001; 82009; 82140; 82150; 82550; 82803; 83036; 83605; 83615; 83690; 83735; 83880; 84100; 84439; 84443; 84484; 84550; 85025; 85379; 85610; 87040; 87070; 87081; 87086; 87205; 87804; 93005; 94640; 94660; 96361; 96365; 99285; J0696; J2405; J2543; J2930; J3490; J7030; J7060; J7120; J7620; J7626; Q0092